=== PATIENT | female | born 1985 | race Caucasian/White ===

== ENCOUNTER 2017-01-04 23:44 | Emergency (ER) | payer OTHER ==
[~2017-01-04] VITALS: Ht 157.4 cm; Wt 149.2 kg
[~2017-01-04 23:44] MED LIST: ADIPEX-P37.5 M2 PO; ALBUTEROL0.09 MG/A2 IH; AMOXICILLIN500 MG PO; AMOXIL500 MG PO; AMOXIL875 MG PO; ASPIRIN81 M1 PO; ATIVAN1 MG PO; AUGMENTIN 875 M1 TAB PO; AUGMENTIN 875875 MG PO; BACTRIM DS 8001 TA1 PO; BACTROBAN OINT22 GM PO; CEPHALEXIN500 M1 PO; CIPROFLOXACIN500 MG PO; CLARITIN10 MG PO; COLACE100 MG PO; COUMADIN10 M1 PO; COUMADIN2 M1 PO; CYCLOBENZAPRINE10 MG PO; DELSYM30 MG/5 ML PO; DIFLUCAN150 MG PO; DIFLUCAN50 MG; ERYTHROMYCIN5 MG/G1 OP; FLAGYL500 MG PO; FLEXERIL10 MG PO; FLONASE ALLERG9.9 ML NS; FLONASE0.05 MG/AC NS; Fioricet 325 MG1 TAB PO; HYDROCODONE BIT1 T11 PO; KEFLEX500 MG PO; KENALOG0.1% TP; KLONOPIN2 MG PO; Lovenox40 MG/0.4 PO; MACROBID100 M1 PO; MONISTAT 3 COMB1 KI1; MONISTAT 7100 MG VG; MOTRIN600 MG PO; MOTRIN800 MG PO; NIFEDICAL XL30 MG PO; OCEAN NASAL SPR45 ML NAS; PENICILLIN VK500 MG PO; PENICILLIN-VK500 M1 PO; PERCOCET 325 MG1 TA2 PO; PRENATAL VITAMI1 TA9 PO; PROCARDIA20 MG PO; Peridex 473 ML473 ML PO; SEPTRA DS 800 M1 TAB PO; SUDAFED60 M1 PO; TOPAMAX100 MG PO; ULTRAM50 MG PO; VICODIN 5-3001 EACH PO; VICODIN 5/500 505 MG PO; VICODIN ES 7501 TA1; VISTARIL50 MG PO; VITAMIN D2000 IU PO; VITAMIN D400 I1; VOLTAREN75 MG PO; ZITHROMAX Z PA250 MG PO; ZITHROMAX250 MG PO; ZYRTEC10 M3 PO
[2017-01-05] MEDS ORDERED: CYCLOBENZAPRINE5 M3 PO (01:43)
[2017-01-05] MEDS ORDERED: MEDROL DOSEPAK4 MG PO (01:43)
== END 2017-01-05 02:02 | disposition home or self-care (01) ==
LOC: ED 23:44
DX: G89.29 Other chronic pain (principal); M54.6 Pain in thoracic spine; H57.8 Other specified disorders of eye and adnexa; F17.200 Nicotine dependence, unspecified, uncomplicated; Z98.890 Other specified postprocedural states; Z79.01 Long term (current) use of anticoagulants; Z88.1 Allergy status to other antibiotic agents

== ENCOUNTER 2017-03-23 00:36 | Inpatient (IN) | payer OTHER ==
[~2017-03-23] VITALS: Ht 157.4 cm; Wt 145.7 kg
--- NOTE | ~2017-03-23 | PR ---
[place], [place] PROGRESS NOTE NAME: [facility] #: [id number] UNIT #: [id number] ROOM: 507 DOCTOR: THO GUADARRAMA MD BIRTHDATE: [birth year] DOS: 03/24/2017 The patient has been admitted to the hospital with acute appendicitis and has been seen by Dr. Zaldivar and he is planning to take her for surgery today for appendectomy. 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 She is also massively obese. The patient smokes 1 pack of cigarettes daily and does not use any drugs she drinks occasionally. FAMILY HISTORY: There is history of chronic obstructive pulmonary disease and breast cancer in the family. Father at age 60, cause unknown. On examination, the patient is conscious and alert. She is complaining of pain in her abdomen with some nausea, but no vomiting. Blood pressure 115/54, pulse is 108, respirations 20, temperature 101. Chest is clear. Heart is regular. Abdomen is having marked tenderness in the right lower quadrant. Bowel sounds are present. Her CBC today is white count 11,600, hemoglobin 10.8, hematocrit 34.7. Urine cultures did not grow any bacteria and APTT is 50.5. The patient will be taken to surgery today. THO GUADARRAMA MD CM:PNTRANS [id number] THO GUADARRAMA MD 04/02/17 0726 interface
--- NOTE | ~2017-03-23 | PR ---
[place], [place] PROGRESS NOTE NAME: CHASITY [facility]ACKET[facility] #: [id number] UNIT #: [id number] ROOM: 507 DOCTOR: THO GUADARRAMA MD BIRTHDATE: [birth year] DOS: 03/25/2017 SUBJECTIVE: The patient has been admitted to hospital with acute appendicitis. She underwent appendectomy yesterday. I talked to Dr. Zaldivar and he explained that everything went our good. There was no problem, no complication. The patient has history of sagittal sinus thrombosis and she will be started on Coumadin today and she will be started on clear liquid diet. Her urine culture and sensitivity did not grow any bacteria. Her comprehensive metabolic profile is fairly good and her APTT today is 56.9. OBJECTIVE: VITAL SIGNS: Blood pressure is 134/72, pulse 78, respirations 18, temperature 98.9. CHEST: Clear. HEART: Regular. ABDOMEN: Soft. THO GUADARRAMA MD CM:PNTRANS [id number] THO GUADARRAMA MD 04/02/17 0728 interface
--- NOTE | ~2017-03-23 | O ---
[place], [place] OPERATIVE NOTE [facility]: [facility] #: [id number] UNIT #: [id number] ROOM: 507 DOCTOR: ANTONIO GUTIERREZ MD BIRTHDATE: [birth year] DOS: 03/24/2017 PREOPERATIVE DIAGNOSIS: Acute appendicitis. POSTOPERATIVE DIAGNOSIS: Acute appendicitis. PROCEDURE: Laparoscopic appendectomy. SURGEON: Antonio Gutierrez MD MANAGER EMS: MAURILIO. ANESTHESIA: General with endotracheal intubation. INDICATIONS: This is a 31-year-old lady with a history of abdominal pain and was found to have acute appendicitis. She is here for the above-mentioned procedure. The procedure and its complications were explained to the patient in detail preoperatively. Complications that were discussed included but were not limited to bleeding, infection, hematoma/seroma/abscess formation, prolonged postoperative pain, and damage to underlying vital structures. She agreed to proceed. DESCRIPTION OF PROCEDURE: After identifying the patient, the patient was brought to the operating suite and laid in the supine position. After induction of general anesthesia, a time-out procedure was called and a Franklin catheter was inserted into the urinary bladder. The parts were then painted and draped in the usual sterile fashion. An umbilical incision was made. The skin and the subcutaneous tissue were incised. The fascia was incised and 2 stay sutures were taken with the help of 0 Vicryl on either side. The peritoneum was opened and a 12-mm Luz Marina port was introduced under direct vision. A right lower quadrant and a left paramedian transverse incision was made. The right lower quadrant incision was 5 mm and the left paramedian incision was 10 mm and appropriate size ports were introduced. The patient was placed in a Trendelenburg right side up position. There were some adhesions from a previous that were taken down with the help of electrocautery. Thereafter, the appendix was found which was found to be acutely inflamed. It was held up with the help of an Endo Blake forceps and the base was then stapled across with the help of an Endo-SALONI stapler. The appendix was then placed in an EndoCatch bag and removed from the peritoneal cavity and sent for histopathological diagnosis. Hemostasis was achieved and saline was used for irrigation. After hemostasis was confirmed, the right lower quadrant and the left paramedian ports were removed and there was no bleeding seen. The umbilical port was also removed and the 2 stay sutures were tied together. Thereafter, the incisions were infiltrated with 1% plain lidocaine and approximated with the help of 4-0 Vicryl in a subcuticular running fashion. Dressings were placed. The patient tolerated the procedure well and was taken to the recovery room in stable fashion. There were no complications. Blood loss was minimal. I, Dr. Antonio Gutierrez, the attending surgeon, was present throughout the operating case. [place], [place] OPERATIVE NOTE [facility] [id number] UN[facility] #: [id number] ROOM: [facility] DOCTOR: ANTONIO GUTIERREZ MD BIRTHDATE: [birth year] Antonio Gutierrez MD CM:OPRECORD:OPERATIVE NOTE [id number] ANTONIO GUTIERREZ MD 03/24/17 1419 interface
[~2017-03-23 00:36] MED LIST changes: +CYCLOBENZAPRINE5 M3 PO; +MEDROL DOSEPAK4 MG PO
[2017-03-23 00:47] VITALS: BP 135/85
[2017-03-23 01:17] LABS: BASO # 0.1 10*3/uL (0.0-0.1); BASO % 0.5 % (0.0-1.0); EOS # 0.1 10*3/uL (0.0-0.4); EOS % 0.7 % (1.0-4.0); HEMATOCRIT 40.3 % (37.0-47.0); HEMOGLOBIN 12.9 g/dl (12.0-16.0); LYMPH # 2.9 10*3/uL (1.3-4.4); LYMPH % 24.2 % (27.0-41.0); MEAN CELL VOLUME 94.2 fl (81.0-99.0); MEAN CORPUSCULAR HGB 30.1 pg (27.0-31.0); MEAN PLATELET VOLUME 9.1 fl (9.6-12.3); MONO # 0.5 10*3/uL (0.1-1.0); MONO % 4.5 % (3.0-9.0); NEUT # 8.4 10*3/uL (2.3-7.9); NEUT % 69.7 % (47.0-73.0); PLATELET COUNT AUTOMATED 268 10*3/uL (130-400); RED BLOOD COUNT 4.28 10*6/uL (4.10-5.10)
[2017-03-23 01:28] LABS: ACT PARTIAL THROMBO TIME 31.5 SECONDS (20.8-31.5); INTERNATIONAL NORM RATIO 1.6 (2.0-3.5)
[2017-03-23 01:34] LABS: ALBUMIN 3.5 gm/dl (3.1-4.5); ALKALINE PHOSPHATASE 101 U/L (45-117); BUN 9 mg/dl (7-24); CHLORIDE 105 mmol/L (98-107); CREATININE 0.63 mg/dL (0.55-1.02); LIPASE 124 U/L (73-393); POTASSIUM 3.9 mmol/L (3.5-5.1); SGOT/AST 23 IU/L (3-35); SGPT/ALT 41 U/L (12-78); SODIUM 137 mmol/L (136-145); TOTAL PROTEIN 7.3 gm/dL (6.4-8.2)
[2017-03-23 01:36] LABS: BILIRUBIN NEGATIVE (NEGATIVE); BLOOD 3+ (NEGATIVE); CLARITY SL CLOUDY (CLEAR); COLOR YELLOW (YELLOW); GLUCOSE NEGATIVE (NEGATIVE); KETONE NEGATIVE (NEGATIVE); LEUKO ESTERASE NEGATIVE (NEGATIVE); NITRITE NEGATIVE (NEGATIVE); SPECIFIC GRAVITY <= 1.005 (1.005-1.030); UROBILINOGEN 0.2 E.U./dl (0.2-1.0)
[2017-03-23 01:44] LABS: BACTERIA 2+; EPITHELIAL CELLS 20-25
[2017-03-23 03:15] VITALS: BP 142/94
--- NOTE | 2017-03-23 03:15 | NUR ---
Time: 314 A 31 year old F admitted to under services of DR. CHAN YAN,[facility]. Pt. arrived via bed from ER. Chief complaint: ABD PAIN STARTING 03/21. RACHEL PRIEST
[2017-03-23] MEDS ORDERED: COUMADIN7.5 M1 PO (03:54)
--- NOTE | 2017-03-23 04:00 | NUR ---
DR Cristian VACA CALLED QUESTIONING DR GUTIERREZ'S PLAN FOR COAGULATION PATIENT HAS CLOTTING DISORDER. ER CONTACTED, ER NURSE UNSURE OF ORDERS FROM DR GUTIERREZ. DR GRACIA INFORMED OF ABOVE AND HE IS TO CALL DR SMART AND DR GUTIERREZ FOR INPUT.
--- NOTE | 2017-03-23 06:53 | NUR ---
REQUESTED AND RECEIVED DILAUDID IV PER PRN ORDER FOR COMPLAINTS OF ABD PAIN RATING A 10. IV FLUID BOLUS INFUSING PER ORDER. HEPARIN DRIP MAINTAINED. NPO STATUS FOR SURGERY THIS AM. CALL LIGHT WITHIN REACH. REMAINS AT BEDSIDE
--- NOTE | 2017-03-23 07:13 | NUR ---
STATES RELIEF FROM EARLIER PAIN MEDS. RESTING WITH EYES CLOSED. IV FLUIDS AND HEPARIN MAINTAINED.
[2017-03-23 08:00] VITALS: BP 135/85
--- NOTE | 2017-03-23 08:54 | NUR ---
PT GIVEN PRN DILAUDID AT THIS TIME FOR C/O MID ABDOMINAL PAIN THAT SHE RATES A 10/10. WILL COTNINUE TO MONITOR.
--- NOTE | 2017-03-23 10:00 | NUR ---
PRN DILAUDID SOMEWHAT EFFECTIVE BUT PT HAVING INCREASED PAIN AT THIS TIME. DOSE CHANGED BY DR. GUTIERREZ.
--- NOTE | 2017-03-23 10:09 | NUR ---
PT MEDICATED WITH ONE TIME DOSE OF DILAUDID 0.5 MG PER ORDER FROM [address] GUTIERREZ. Q2H DOSE CHANGED TO 1 MG. PT STATES PAIN IS GETTING WORSE AND IS NOW IN THE RLQ OF ABDOMEN.
--- NOTE | 2017-03-23 11:15 | NUR ---
PT MEDICATED WITH PRN DILAUDID AT THIS TIME FOR C/O RLQ ABDOMINAL PAIN. PT RATES PAIN 02/27. WILL REACCESS.
[2017-03-23] MEDS ORDERED: XARELTO10 MG PO (11:45)
[2017-03-23] MEDS ORDERED: METFORMIN1000 MG PO (11:46)
[2017-03-23] MEDS ORDERED: ADIPEX-P37.5 MG PO (11:46)
[2017-03-23 12:00] VITALS: BP 146/88
--- NOTE | 2017-03-23 12:15 | NUR ---
PT STATES PRN DILAUDID EFFECTIVE. PT RESTING QUIETLY.
--- NOTE | 2017-03-23 14:28 | NUR ---
Nutritional Support Services Note: Pt with Dx of appendicitis. To have surgery on 03/24/17. NPO status at this time. BMI>40. Will follow s/p surgery. Majo Montiel
--- NOTE | 2017-03-23 15:15 | NUR ---
PT MEDICATED WITH PRN DILAUDID FOR C/O RLQ ABDOMINAL PAIN. PT RATES PAIN 10/10. WILL CONTINUE TO MONITOR.
[2017-03-23 16:00] VITALS: BP 136/76
--- NOTE | 2017-03-23 17:15 | NUR ---
pt medicated with PRN DILAUDID FOR C/O RLQ ABDOMINAL PAIN. PT RATES PAIN 10/10 WILL CONTINUE TO MONITOR.
--- NOTE | 2017-03-23 18:15 | NUR ---
PRN DILAUDID EFFECTIVE.
--- NOTE | 2017-03-23 19:31 | NUR ---
PT MEDICATED WITH PRN DILAUDID FOR C/O RLQ ABDOMINAL PAIN. PT RATES PAIN 02/27. WILL REACCESS.
[2017-03-23 20:00] VITALS: BP 140/84
--- NOTE | 2017-03-23 20:00 | NUR ---
EARLIER MEDS APPEAR EFFECTIVE, SLEEPING. REMAINS ASLEEP UPON STAFF ENTERING AND EXITING ROOM. RESPIRATIONS EASY. VSS. IV FLUIDS AND HEPARIN MAINTAINED PER ORDER.
--- NOTE | 2017-03-23 22:58 | NUR ---
IMMEDIATELY UPON AWAKENING, PATIENT REQUESTED AND RECEIVED DILAUDID IV PER PRN ORDER FOR C/O ABD PAIN RATING AN 8. RESPIRATIONS EASY. LUNGS DIMINISHED. ABD SOFTLY OBESE WITH HYPOACTIVE BOWEL SOUNDS, ABD TENDERNESS NOTED. OFFERED AND EDUCATED REGARDING TEDS, DECLINED. IV FLUIDS AND HEPARIN MAINTAINED PER ORDER. CALL LIGHT WITHIN REACH. WILL MONITOR
--- NOTE | 2017-03-23 23:30 | NUR ---
STATES EARLIER DILAUDID HELPING WITH PAIN MANAGEMENT.
[2017-03-24] VITALS (11 sets, daily range): BP systolic 110–158; BP diastolic 54–84
--- NOTE | 2017-03-24 01:00 | NUR ---
REQUESTED AND RECEIVED DILAUDID IV PER PRN ORDER FOR COMPLAINTS OF ABD PAIN RATING AN 8. CALL LIGHT WITHIN REACH. WILL MONITOR FOR EFFECTIVENESS
--- NOTE | 2017-03-24 01:45 | NUR ---
EARLIER DILAUDID APPEARS EFFECTIVE. RESTING WITH EYES CLOSED. RESPIRATIONS EASY. IV FLUIDS AND HEPARIN MAINTAINED PER ORDER.
--- NOTE | 2017-03-24 02:30 | NUR ---
SLEEPING. RESPIRATIONS EASY. IV FLUIDS AND HEPARIN DRIP MAINTAINED PER ORDER.
--- NOTE | 2017-03-24 03:45 | NUR ---
REQUESTED AND RECEIVED DILAUDID IV PER PRN ORDER FOR COMPLAINTS OF ABD PAIN RATING A 10. CALL LIGHT WITHIN REACH. WILL MONITOR
--- NOTE | 2017-03-24 04:30 | NUR ---
MEDS APPEAR EFFECTIVE. SLEEPING. RESPIRATIONS EASY. IV FLUIDS AND HEPARING MAINTAINED. CALL LIGHT WITHIN REACH
--- NOTE | 2017-03-24 05:40 | NUR ---
REQUESTED AND RECEIVED DILAUDID IV PER PRN ORDER FOR COMPLAINTS OF ABD PAIN RATING A 10. IV FLUIDS MAINTAINED. CALL LIGHT WITHIN REACH. WILL MONITOR
--- NOTE | 2017-03-24 05:55 | NUR ---
DR GUTIERREZ CALLED IN TO CHECK PATIENT AND STATUS. INFORMED OF 100.1 TEMP. HR 112. PATIENT CONTINUES TO C/O PAIN DESCRIBED WORSENING. ORDERS RECEIVED TO D/C HEPARIN DRIP AND KEEP NPO FOR SURGERY 03/24.
--- NOTE | 2017-03-24 06:00 | NUR ---
PATIENT INFORMED DR GUTIERREZ TO TAKE PATIENT TO SURGERY TODAY. VOICED UNDERSTANDING
--- NOTE | 2017-03-24 06:30 | NUR ---
EARLIER MEDS APPEAR EFFECTIVE, TALKING ON PHONE AND JOKING.
[2017-03-24 08:04] LABS: BASO % 0.3 % (0.0-1.0); EOS % 0.3 % (1.0-4.0); HEMATOCRIT 34.7 % (37.0-47.0); LYMPH # 2.4 10*3/uL (1.3-4.4); LYMPH % 20.6 % (27.0-41.0); MEAN CELL VOLUME 96.4 fl (81.0-99.0); MEAN CORPUSCULAR HGB CONC 31.1 g/dl (33.0-37.0); MEAN PLATELET VOLUME 9.2 fl (9.6-12.3); MONO # 0.5 10*3/uL (0.1-1.0); MONO % 4.6 % (3.0-9.0); NEUT # 8.6 10*3/uL (2.3-7.9); NEUT % 73.9 % (47.0-73.0); PLATELET COUNT AUTOMATED 221 10*3/uL (130-400); RED CELL DISTRI WIDTH 14.2 % (0-14.5); WHITE BLOOD COUNT 11.6 10*3/uL (4.8-10.8)
[2017-03-24 08:05] LABS: HEMOGLOBIN 10.8 g/dl (12.0-16.0)
[2017-03-24 08:31] LABS: ACT PARTIAL THROMBO TIME 33.7 SECONDS (20.8-31.5); ALBUMIN 2.6 gm/dl (3.1-4.5); ALKALINE PHOSPHATASE 78 U/L (45-117); BUN 6 mg/dl (7-24); CHLORIDE 109 mmol/L (98-107); CHOLESTEROL 107 mg/dL (<200); CREATININE 0.48 mg/dL (0.55-1.02); FREE T4 1.34 ng/dl (0.76-1.46); HDL CHOLESTEROL 30 mg/dl (40-60); INTERNATIONAL NORM RATIO 1.5 (2.0-3.5); LDL CHOLESTEROL 40 mg/dL (9-159); PHOSPHOROUS 1.7 mg/dL (2.5-4.9); POTASSIUM 3.6 mmol/L (3.5-5.1); SGOT/AST 9 IU/L (3-35); SGPT/ALT 26 U/L (12-78); SODIUM 139 mmol/L (136-145); TOTAL PROTEIN 6.2 gm/dL (6.4-8.2); TRIGLYCERIDES 187 mg/dl (<150); VLDL CHOLESTEROL 37 mg/dL (6-40)
[2017-03-24 08:59] LABS: VITAMIN D, 25-HYDROXY 9.1 ng/mL (30-100)
--- NOTE | 2017-03-24 15:30 | NUR ---
PT BACK FROM OR. THE PT TOLERATED THE PROCEDURE WELL. ALL IV FLUID CONTINUED. CONT POX PUT ON PT. PT SATS IN THE LOW 90'S. PT C/O PAIN, NORCO GIVEN. WILL REASSESS PAIN LEVEL IN 30 MIN. PT DENIES NO NVD, CHEST PAIN AND SOB AT THIS TIME. NO OTHER CONCERNS.
--- NOTE | 2017-03-24 19:58 | NUR ---
C/O 10/10 ABDOMINAL PAIN. MEDICATED WITH PRN DILAUDID ORDERED. AFTER ADMINISTRATION OF DILAUDID PATIENT C/O PAIN/BURNING TO IV SITE. PATIENT SAID SHE DOES NOT FEEL LIKE SHE GOT THE DILAUDID. IV SITE HAS + BLOOD RETURN, FLUSHES EASILY. SITE DOES HAVE SLIGHT REDNESS AROUND IT. IV SITE WILL BE DISCONTINUED AND RESTARTED.
--- NOTE | 2017-03-24 20:00 | NUR ---
Hep Lock discontinued. C/O PAIN TO SITE. Site asymptomatic. Pressure applied. Sterile dressing applied. MAHENDRA BHAGAT
--- NOTE | 2017-03-24 20:00 | NUR ---
HEPARIN DOSE VERIFIED BY PHARMACY.
--- NOTE | 2017-03-24 20:39 | NUR ---
DR. MONTES NOTIFIED OF NEED TO DISCONTINUE IV SITE. PATIENT WAS GIVEN A ONE TIME DOSE OF 1 MG IV DILAUDID. CONTINUES TO C/O 10/10 ABDOMINAL PAIN. PATIENT STATES THE DILAUDID WAS INSTANTLY EFFECTIVE.
--- NOTE | 2017-03-24 22:06 | NUR ---
PATIENT WOKE UP WHILE I WAS IN HER ROOM HANGING ANTIBIOTIC AND C/O 10/10 ABDOMINAL PAIN. MEDICATED WITH NORCO ORDERED AND PER PATIENT REQUEST. PATIENT ASSISTED OUT OF BED TO BEDSIDE COMMODE.
--- NOTE | 2017-03-24 22:49 | NUR ---
PATIENT STATES NORCO IS INEFFECTIVE. C/O 10/10 ABDOMINAL PAIN. REQUESTING DILAUDID.
--- NOTE | 2017-03-24 22:58 | NUR ---
C/O 02/27 ABDOMINAL PAIN. MEDICATED WITH DILAUDID.
--- NOTE | 2017-03-24 23:23 | NUR ---
PATIENT ASLEEP. NO SIGNS OF PAIN. DILAUDID EFFECTIVE.
--- NOTE | 2017-03-24 23:52 | NUR ---
24 HR chart check completed.
[2017-03-25] VITALS: BP 129/69
--- NOTE | 2017-03-25 01:00 | NUR ---
C/O 10/10 ABDOMINAL PAIN. WORSE RLQ OF ABDOMEN. MEDICATED WITH PRN DILAUDID PER PATIENT REQUEST. NO SIGNS OF DISTRESS. CONTINOUS PULSE OX INTACT.
[2017-03-25 01:35] LABS: BASO % 0.2 % (0.0-1.0); EOS % 0.2 % (1.0-4.0); HEMATOCRIT 35.6 % (37.0-47.0); LYMPH # 2.1 10*3/uL (1.3-4.4); LYMPH % 14.8 % (27.0-41.0); MEAN CELL VOLUME 96.7 fl (81.0-99.0); MEAN CORPUSCULAR HGB 29.9 pg (27.0-31.0); MEAN CORPUSCULAR HGB CONC 30.9 g/dl (33.0-37.0); MEAN PLATELET VOLUME 9.2 fl (9.6-12.3); MONO # 0.6 10*3/uL (0.1-1.0); MONO % 4.1 % (3.0-9.0); NEUT # 11.3 10*3/uL (2.3-7.9); NEUT % 80.3 % (47.0-73.0); PLATELET COUNT AUTOMATED 212 10*3/uL (130-400); RED BLOOD COUNT 3.68 10*6/uL (4.10-5.10); RED CELL DISTRI WIDTH 14.1 % (0-14.5)
--- NOTE | 2017-03-25 01:42 | NUR ---
Patient yelling and swearing at myself and systems testing laboratory technician. Patient refusing to let lab use her hands and wrists for lab draws. Patient is a difficult stick. Patient does not want repeated sticks. AM labs drawn at the same time as PTT due to patients request. Patient tearful off and on. Patient assisted to BSC. technical specialist was able to draw the blood after patient allowed her to use her right hand. Explained to patient the need for lab draw to monitor her PTT for the heparin gtt.
--- NOTE | 2017-03-25 02:00 | NUR ---
PATIENT ASLEEP. NO SIGNS OF PAIN. DILAUDID EFFECTIVE.
--- NOTE | 2017-03-25 02:06 | NUR ---
PATIENT IS AWAKE. C/O 10/10 ABDOMINAL PAIN. MEDICATED WITH PRN NORCO ORDERED AND PER PATIENT REQUEST.
[2017-03-25 02:14] LABS: ALBUMIN 2.5 gm/dl (3.1-4.5); ALKALINE PHOSPHATASE 86 U/L (45-117); BUN 6 mg/dl (7-24); CHLORIDE 106 mmol/L (98-107); CREATININE 0.58 mg/dL (0.55-1.02); POTASSIUM 3.6 mmol/L (3.5-5.1); SGOT/AST 11 IU/L (3-35); SGPT/ALT 21 U/L (12-78); SODIUM 137 mmol/L (136-145); TOTAL PROTEIN 6.4 gm/dL (6.4-8.2)
--- NOTE | 2017-03-25 03:06 | NUR ---
PATIENT ASLEEP. NO SIGNS OF PAIN. NORCO EFFECTIVE.
--- NOTE | 2017-03-25 03:30 | NUR ---
C/O 10/10 ABDOMINAL PAIN. MEDICATED WITH DILAUDID ORDERED AND PER PATIENT REQUEST. PATIENT ON PHONE IN ROOM. NO SIGNS OF DISTRESS. CONTINUOUS PULSE OX INTACT.
[2017-03-25 04:00] VITALS: BP 134/72
--- NOTE | 2017-03-25 04:00 | NUR ---
PATIENT SLEEPING. NO SIGNS OF PAIN. DILAUDID EFFECTIVE.
--- NOTE | 2017-03-25 05:43 | NUR ---
DILAUDID GIVEN FOR 10/10 ABDOMINAL PAIN. DENIES NAUSEA. DENIES FLATUS.
--- NOTE | 2017-03-25 06:20 | NUR ---
PATIENT ASLEEP. NO SIGNS OF PAIN. DILAUDID EFFECTIVE.
--- NOTE | 2017-03-25 07:42 | NUR ---
DR GUTIERREZ IN TO SEE PT, INFORMED OF CONTINUED REQUESTS FOR PAIN MEDICATION. WILL AWAIT FURTHER ORDERS.
--- NOTE | 2017-03-25 07:57 | NUR ---
MEDICATED IV SLOWLY ORDERED PER PT REQUEST WITH DILAUDID FOR C/O ABDOMINAL PAIN. PT RATES PAIN 02/27. SEE EMAR.
[2017-03-25 08:00] VITALS: BP 128/74; BP 132/77
--- NOTE | 2017-03-25 08:03 | NUR ---
MEDICATED PO ORDERED WITH TYLENOL FOR LOW GRADE TEMPERATIRE & DULCOLAX FOR CONSTIPATION. ENCOURAGED TO GET OOB AT AID IN LUNG EXPANSION WELL PERISTALSIS. PT VOICES UNDERSTANDING. WHEN GIVEN PILLOW TO HELP SPLINT ABD INCISION, PT ADAMANTLY REFUSES STATING IT HURTS, ATTEMPED TO EXPLAIN RATIONAL, PT UNINTERESTED. SEE SHIFT ASSESSMENT.
--- NOTE | 2017-03-25 08:06 | NUR ---
DR GUADARRAMA IN TO SEE PT.
--- NOTE | 2017-03-25 08:58 | NUR ---
LATE ENTRY--PER DR GUTIERREZ, NO NEED FOR DRSNG CHANGE AT THIS TIME.
--- NOTE | 2017-03-25 09:55 | NUR ---
MEDICATED PO ORDERED PER PT REQUEST WITH PERCOCET 1 TAB FOR C/O CONTINUED ABD PAIN, PT RATES PAIN 10/10. SEE EMAR. PT STATES PREVIOUS MEDICATION ONLY EFFECTIVE FOR "ABOUT AN HOUR OR HOUR & A HALF" PT RELUCTANTLY OOB TO CHAIR, REVIEWED DEEP BREATHING TECHNIQUES. PT VOICES UNDERSTANDING. CALL LIGHT SYSTEM WITHIN REACH.
--- NOTE | 2017-03-25 10:55 | NUR ---
ATTEMPTED TO UPDATE MED REC, PHARMACY CURRENTLY CLOSED.
--- NOTE | 2017-03-25 11:59 | NUR ---
MEDICATED IV SLOWLY ORDERED PER PT REQUEST WITH DILAUDID FOR C/O CONTINUED ABDOMINAL PAIN. PT RATES PAIN 12/28. SEE EMAR.
[2017-03-25 12:00] VITALS: BP 154/82
--- NOTE | 2017-03-25 14:59 | NUR ---
MEDICATED IV SLOWLY ORDERED PER PT REQUEST FOR CONTINUED ABDOMINAL PAIN. PT RATES PAIN 10/10. SEE EMAR. PT UP TO BSC WITH ASSIST.
[2017-03-25 16:00] VITALS: BP 134/67
--- NOTE | 2017-03-25 16:02 | NUR ---
MEDICATED PO ORDERED PER PT REQUEST WITH PERCOCET 1 TAB FOR C/O CONTINUED ABD PAIN. PT RATES PAIN 12/28. SEE EMAR.
--- NOTE | 2017-03-25 17:17 | NUR ---
MEDICATED IV SLOWLY ORDERED PER PT REQUEST WITH DILAUDID FOR C/O CONTINUED ABD PAIN. PT RATES PAIN 12/28. EATING & TOLERATING MEALS.
--- NOTE | 2017-03-25 18:47 | NUR ---
WITH EACH PRN PAIN MEDICATION ADMINISTRATION, PT STATES LITTLE RELIEF AFTER AN HOUR OR SO. NO BROW FURROWING OR GUARDING OF INCISION NOTED. NO DIAPHORESIS OR OBVIOUS S/S DISTRESS NOTED. PT ATE & TOLERATED MEALS TODAY. ONCE AGAIN, ENCOURAGED PO FLUID INTAKE WELL OOB. PT VOICES UNDERSTANDING BUT IS RELUCTANT TO MOVE & REFUSES TO SPLINT INCISION.
--- NOTE | 2017-03-25 19:45 | NUR ---
C/O PAIN TO LOWER ABDOMEN OF 12/28. ID DILAUDID GIVEN AT THIS TIME PER REQUEST. WILL CONT TO MONITOR. CALL LIGHT IN REACH.
--- NOTE | 2017-03-25 19:45 | NUR ---
IN BED AWAKE ALERT AND ORIENTED X3, TALKING ON HER PHONE. NO S/S OF DISTRESS. SEE ASSESS. HEPARIN DRIP RUNNING PER ORDER. WILL CONT TO MONITOR. CALL LIGHT IN REACH.
[2017-03-25 20:00] VITALS: BP 127/77
--- NOTE | 2017-03-25 20:45 | NUR ---
PT RESTING QUIETLY AT THIS TIME. IV DILAUDID EFF. WILL CONT TO MONITOR. CALL LIGHT IN REACH.
--- NOTE | 2017-03-25 22:46 | NUR ---
C/O PAIN OF 8. PERCOCET GIVEN AT THIS TIME. WILL CONT TO MONITOR. CALL LIGHT IN REACH.
--- NOTE | 2017-03-25 23:47 | NUR ---
PATIENT MEDICATED WITH PRN DILAUDID ORDERED FOR C/O ABDOMINAL PAIN RATED A 7. PATIENT IS LEGALLY BLIND, SHE IS SITTING UP IN BED, NO SXS OF DISTRESS. PLEASANT AND COOPERATIVE WITH CARE. HEP GTT MAINTAINED ORDERED AT 26.5 ML/HR, CALL LIGHT IS IN REACH. WILL MONITOR.
[2017-03-26] VITALS: BP 129/78
--- NOTE | 2017-03-26 00:47 | NUR ---
PATIENT STATES EARLIER DILAUDID WAS EFFECTIVE IN DECREASING ABDOMINAL PAIN.
--- NOTE | 2017-03-26 02:00 | NUR ---
MEDICATED WITH PRN DILAUDID ORDERED FOR C/O ABDOMINAL PAIN RATED A 10
--- NOTE | 2017-03-26 03:18 | NUR ---
MEDICATED WITH PRN TYLENOL ORDERED FOR C/O ABDOMINAL PAIN RATED A 9.
--- NOTE | 2017-03-26 03:18 | NUR ---
EARLIER DILAUDID INEFFECTIVE PER PATIENT. SHE WAS MEDICATED WITH PO PRN TYLENOL ORDERED FOR C/O ABDOMINAL PAIN RATED A 9 AT THIS TIME. WILL FOLLOW UP.
--- NOTE | 2017-03-26 04:07 | NUR ---
MEDICATED WITH PRN DILAUDID ORDERED FOR C/O ABDOMINAL PAIN RATED AN 8
--- NOTE | 2017-03-26 05:23 | NUR ---
MEDICATEDN WITH PRN PERCOCET ORDERD FOR C/O ABDOMINAL PAIN RATED A 10. NEW BAG OF HEPARIN HUNG AT THIS TIME. MEDICATION VERIFIED WITH TWO RNS.
[2017-03-26 06:10] LABS: BASO % 0.3 % (0.0-1.0); EOS # 0.1 10*3/uL (0.0-0.4); EOS % 1.2 % (1.0-4.0); HEMATOCRIT 33.1 % (37.0-47.0); HEMOGLOBIN 10.5 g/dl (12.0-16.0); LYMPH # 1.6 10*3/uL (1.3-4.4); LYMPH % 14.1 % (27.0-41.0); MEAN CELL VOLUME 93.8 fl (81.0-99.0); MEAN CORPUSCULAR HGB 29.7 pg (27.0-31.0); MEAN CORPUSCULAR HGB CONC 31.7 g/dl (33.0-37.0); MEAN PLATELET VOLUME 9.8 fl (9.6-12.3); MONO # 0.7 10*3/uL (0.1-1.0); MONO % 6.1 % (3.0-9.0); NEUT % 77.9 % (47.0-73.0); PLATELET COUNT AUTOMATED 214 10*3/uL (130-400); RED BLOOD COUNT 3.53 10*6/uL (4.10-5.10); WHITE BLOOD COUNT 11.6 10*3/uL (4.8-10.8)
[2017-03-26 06:37] LABS: ALBUMIN 2.4 gm/dl (3.1-4.5); ALKALINE PHOSPHATASE 127 U/L (45-117); BUN 4 mg/dl (7-24); CHLORIDE 103 mmol/L (98-107); CREATININE 0.49 mg/dL (0.55-1.02); POTASSIUM 3.3 mmol/L (3.5-5.1); SGOT/AST 26 IU/L (3-35); SGPT/ALT 28 U/L (12-78); SODIUM 137 mmol/L (136-145); TOTAL PROTEIN 6.5 gm/dL (6.4-8.2)
--- NOTE | 2017-03-26 06:45 | NUR ---
MEDICATED WITH PRN DILAUDID ORDERED FOR C/O ABDOMINAL PAIN RATED A 10
[2017-03-26 07:42] LABS: INTERNATIONAL NORM RATIO 1.2 (2.0-3.5)
[2017-03-26 08:00] VITALS: BP 130/84
--- NOTE | 2017-03-26 08:00 | NUR ---
Barrel Washer in to talk to patient. Patient states lives at HOME with HER AND 6 CHILDREN. There are 14 steps in the home. Physician: DR GUADARRAMA Pharmacy: [facility] Home health services: NONE Patient's level of ADLs: MODERATE ASSIST Patient has working utilities: YES DME: NONE Follow-up physician's appointment after d/c: PREFERS TO MAKE HER OWN APPT Does patient want to access PORTAL?: Discharge plan HOME. NAGI RANDHAWA
--- NOTE | 2017-03-26 11:24 | NUR ---
Nutritional Support Services Note: Pt ordered a regular diet po. Discussed with pt healthy eating habits. Discussed proper portion sizes. Encouraged reduction in calories for weight loss. Encouraged follow up if needed. Majo Montiel
[2017-03-26 12:00] VITALS: BP 138/57
[2017-03-26 16:00] VITALS: BP 148/87
[2017-03-26 20:00] VITALS: BP 141/71
[2017-03-27] VITALS: BP 125/79
[2017-03-27 06:39] LABS: BASO % 0.3 % (0.0-1.0); EOS # 0.2 10*3/uL (0.0-0.4); EOS % 2.7 % (1.0-4.0); HEMATOCRIT 30.7 % (37.0-47.0); HEMOGLOBIN 9.7 g/dl (12.0-16.0); LYMPH # 1.4 10*3/uL (1.3-4.4); LYMPH % 20.5 % (27.0-41.0); MEAN CELL VOLUME 94.5 fl (81.0-99.0); MEAN CORPUSCULAR HGB 29.8 pg (27.0-31.0); MEAN CORPUSCULAR HGB CONC 31.6 g/dl (33.0-37.0); MEAN PLATELET VOLUME 9.6 fl (9.6-12.3); MONO # 0.4 10*3/uL (0.1-1.0); MONO % 6.5 % (3.0-9.0); NEUT # 4.6 10*3/uL (2.3-7.9); NEUT % 69.1 % (47.0-73.0); PLATELET COUNT AUTOMATED 218 10*3/uL (130-400); RED BLOOD COUNT 3.25 10*6/uL (4.10-5.10); RED CELL DISTRI WIDTH 13.8 % (0-14.5); WHITE BLOOD COUNT 6.6 10*3/uL (4.8-10.8)
[2017-03-27 07:02] LABS: ACT PARTIAL THROMBO TIME 57.9 SECONDS (20.8-31.5); INTERNATIONAL NORM RATIO 1.3 (2.0-3.5)
[2017-03-27 08:00] VITALS: BP 116/86
--- NOTE | 2017-03-27 08:43 | NUR ---
PT STILL C/O OF PAIN. PT REQUESTED DILAUDED BUT WAS EXPLAINED TO THAT IT MIGHT POSSIBLY EFFECT THE PT'S DC STATUS FOR TODAY. DR. GRACIA T/O PERCOCET 7.5MG Q6H. NO OTHER CONCERNS AT THIS TIME.
[2017-03-27 09:49] LABS: BUN 5 mg/dl (7-24); CHLORIDE 106 mmol/L (98-107); CREATININE 0.51 mg/dL (0.55-1.02); POTASSIUM 3.1 mmol/L (3.5-5.1); SODIUM 140 mmol/L (136-145)
[2017-03-27] MEDS ORDERED: Lovenox40 MG/0.4 SC (12:14)
[2017-03-27] MEDS ORDERED: PERCOCET 7.5-31 EACH PO (12:14)
--- NOTE | 2017-03-27 12:40 | NUR ---
Discharge instructions reviewed with patient/family. Patient receptive and verbalizes understanding. Follow-up care arranged. Written instructions given to patient/family. CECILIO MYERS
== END 2017-03-27 12:40 | disposition home or self-care (01) | DRG 853 ==
LOC: ED 00:36 → EDHOLD 02:38 → 5E 02:38
PROVIDERS: Internal Medicine; Nurse Practitioner Family; Surgery; ADMIT Internal Medicine
PROC: 0DTJ4ZZ Resection of Appendix, Percutaneous Endoscopic Approach (ICD-10-PCS; principal; 2017-03-24)
DX: A41.9 Sepsis, unspecified organism (principal); K35.2 Acute appendicitis with generalized peritonitis; D68.62 Lupus anticoagulant syndrome; E66.01 Morbid (severe) obesity due to excess calories; N30.01 Acute cystitis with hematuria; Z68.43 Body mass index [BMI] 50.0-59.9, adult; R73.9 Hyperglycemia, unspecified; M54.9 Dorsalgia, unspecified; F17.210 Nicotine dependence, cigarettes, uncomplicated; I10 Essential (primary) hypertension; H54.8 Legal blindness, as defined in USA; H57.8 Other specified disorders of eye and adnexa; Z87.442 Personal history of urinary calculi; Z88.8 Allergy status to other drugs, medicaments and biological substances; Z79.899 Other long term (current) drug therapy; Z79.01 Long term (current) use of anticoagulants; Z87.440 Personal history of urinary (tract) infections; Z87.01 Personal history of pneumonia (recurrent); Z83.6 Family history of other diseases of the respiratory system; Z80.3 Family history of malignant neoplasm of breast; Z86.718 Personal history of other venous thrombosis and embolism

== ENCOUNTER 2017-05-23 18:07 | Emergency (ER) | payer OTHER ==
[~2017-05-23] VITALS: Ht 157.4 cm
[~2017-05-23 18:07] MED LIST changes: +ADIPEX-P37.5 MG PO; +COUMADIN7.5 M1 PO; +Lovenox40 MG/0.4 SC; +METFORMIN1000 MG PO; +PERCOCET 7.5-31 EACH PO; +XARELTO10 MG PO
[2017-05-23 18:54] LABS: BASO # 0.1 10*3/uL (0.0-0.1); BASO % 0.6 % (0.0-1.0); EOS # 0.1 10*3/uL (0.0-0.4); EOS % 0.8 % (1.0-4.0); HEMOGLOBIN 12.2 g/dl (12.0-16.0); LYMPH # 3.2 10*3/uL (1.3-4.4); LYMPH % 27.6 % (27.0-41.0); MEAN CELL VOLUME 89.9 fl (81.0-99.0); MEAN CORPUSCULAR HGB 28.1 pg (27.0-31.0); MEAN CORPUSCULAR HGB CONC 31.3 g/dl (33.0-37.0); MEAN PLATELET VOLUME 9.2 fl (9.6-12.3); MONO # 0.5 10*3/uL (0.1-1.0); MONO % 4.6 % (3.0-9.0); NEUT # 7.7 10*3/uL (2.3-7.9); NEUT % 66.1 % (47.0-73.0); PLATELET COUNT AUTOMATED 262 10*3/uL (130-400); RED BLOOD COUNT 4.34 10*6/uL (4.10-5.10); RED CELL DISTRI WIDTH 15.2 % (0-14.5); WHITE BLOOD COUNT 11.6 10*3/uL (4.8-10.8)
[2017-05-23 19:10] LABS: ALBUMIN 3.3 gm/dl (3.1-4.5); ALKALINE PHOSPHATASE 107 U/L (45-117); BUN 10 mg/dl (7-24); CHLORIDE 103 mmol/L (98-107); CREATININE 0.61 mg/dL (0.55-1.02); POTASSIUM 4.2 mmol/L (3.5-5.1); SGOT/AST 11 IU/L (3-35); SGPT/ALT 38 U/L (12-78); SODIUM 138 mmol/L (136-145); TOTAL PROTEIN 6.9 gm/dL (6.4-8.2)
[2017-05-23 19:20] LABS: BILIRUBIN NEGATIVE (NEGATIVE); BLOOD TRACE-INTACT (NEGATIVE); CLARITY SL CLOUDY (CLEAR); COLOR YELLOW (YELLOW); GLUCOSE NEGATIVE (NEGATIVE); KETONE NEGATIVE (NEGATIVE); LEUKO ESTERASE NEGATIVE (NEGATIVE); NITRITE NEGATIVE (NEGATIVE); UROBILINOGEN 0.2 E.U./dl (0.2-1.0)
[2017-05-23 19:25] LABS: RBC 0-2 rbc/hpf (0-2)
[2017-05-23 19:26] LABS: BACTERIA 2+
[2017-05-23] MEDS ORDERED: DIFLUCAN150 MG PO (21:26)
[2017-05-23] MEDS ORDERED: OMNICEF300 MG PO (21:26)
[2017-05-23] MEDS ORDERED: NORCO 5-325 TA1 EACH PO (21:28)
== END 2017-05-23 21:29 | disposition home or self-care (01) ==
LOC: ED 18:07
PROVIDERS: Nurse Practitioner Family
DX: R10.31 Right lower quadrant pain (principal); F17.200 Nicotine dependence, unspecified, uncomplicated; E66.01 Morbid (severe) obesity due to excess calories; Z98.890 Other specified postprocedural states; Z79.01 Long term (current) use of anticoagulants; Z79.899 Other long term (current) drug therapy; Z88.1 Allergy status to other antibiotic agents; Z87.442 Personal history of urinary calculi

== ENCOUNTER 2017-08-16 16:40 | Emergency (ER) | payer OTHER ==
[~2017-08-16] VITALS: Wt 131.5 kg
[~2017-08-16 16:40] MED LIST changes: +NORCO 5-325 TA1 EACH PO; +OMNICEF300 MG PO
[2017-08-16 18:02] LABS: BILIRUBIN NEGATIVE (NEGATIVE); BLOOD NEGATIVE (NEGATIVE); CLARITY SL CLOUDY (CLEAR); COLOR YELLOW (YELLOW); GLUCOSE NEGATIVE (NEGATIVE); KETONE NEGATIVE (NEGATIVE); LEUKO ESTERASE NEGATIVE (NEGATIVE); NITRITE NEGATIVE (NEGATIVE); SPECIFIC GRAVITY 1.015 (1.005-1.030); UROBILINOGEN 0.2 E.U./dl (0.2-1.0)
[2017-08-16 18:08] LABS: BACTERIA 2+; RBC 0-2 rbc/hpf (0-2)
[2017-08-16] MEDS ORDERED: MEDROL DOSEPAK4 MG PO (18:57)
[2017-08-16] MEDS ORDERED: CYCLOBENZAPRINE10 MG PO (18:57)
== END 2017-08-16 19:03 | disposition home or self-care (01) ==
LOC: ED 16:40
PROVIDERS: Nurse Practitioner Family
DX: S39.012A Strain of muscle, fascia and tendon of lower back, initial encounter (principal); F17.200 Nicotine dependence, unspecified, uncomplicated; E66.01 Morbid (severe) obesity due to excess calories; Z79.899 Other long term (current) drug therapy; Z98.890 Other specified postprocedural states; Z88.1 Allergy status to other antibiotic agents; Z79.01 Long term (current) use of anticoagulants; Z87.442 Personal history of urinary calculi; X50.1XXA Overexertion from prolonged static or awkward postures, initial encounter; Y93.89 Activity, other specified; Y92.89 Other specified places as the place of occurrence of the external cause; Y99.9 Unspecified external cause status

== ENCOUNTER 2017-08-18 18:04 | Emergency (ER) | payer OTHER ==
[~2017-08-18] VITALS: Ht 160 cm; Wt 131.5 kg
== END 2017-08-18 18:43 | disposition home or self-care (01) ==
LOC: ED 18:04
DX: M54.5 Low back pain (principal); F17.200 Nicotine dependence, unspecified, uncomplicated; Z88.1 Allergy status to other antibiotic agents; Z79.02 Long term (current) use of antithrombotics/antiplatelets

== ENCOUNTER 2017-08-19 18:14 | Emergency (ER) | payer OTHER ==
[~2017-08-19] VITALS: Ht 160 cm; Wt 131.5 kg
[2017-08-19 19:21] LABS: BILIRUBIN NEGATIVE (NEGATIVE); BLOOD NEGATIVE (NEGATIVE); CLARITY CLEAR (CLEAR); COLOR YELLOW (YELLOW); GLUCOSE NEGATIVE (NEGATIVE); KETONE NEGATIVE (NEGATIVE); LEUKO ESTERASE NEGATIVE (NEGATIVE); NITRITE NEGATIVE (NEGATIVE); PH 6.5 (5.0-9.0); SPECIFIC GRAVITY <= 1.005 (1.005-1.030); UROBILINOGEN 0.2 E.U./dl (0.2-1.0)
[2017-08-19 19:38] LABS: BACTERIA 1+; EPITHELIAL CELLS 50-55
== END 2017-08-19 22:46 | disposition home or self-care (01) ==
LOC: ED 18:14
PROVIDERS: Physician Assistant
DX: M54.16 Radiculopathy, lumbar region (principal); F17.200 Nicotine dependence, unspecified, uncomplicated; Z98.890 Other specified postprocedural states; Z79.899 Other long term (current) drug therapy; Z79.01 Long term (current) use of anticoagulants; Z88.1 Allergy status to other antibiotic agents

== ENCOUNTER 2017-09-02 00:28 | Emergency (ER) | payer OTHER ==
[~2017-09-02] VITALS: Ht 160 cm; Wt 131.5 kg
[2017-09-02 01:11] LABS: BILIRUBIN NEGATIVE (NEGATIVE); BLOOD 1+ (NEGATIVE); CLARITY CLEAR (CLEAR); COLOR YELLOW (YELLOW); GLUCOSE NEGATIVE (NEGATIVE); KETONE TRACE (NEGATIVE); LEUKO ESTERASE NEGATIVE (NEGATIVE); NITRITE NEGATIVE (NEGATIVE); SPECIFIC GRAVITY 1.025 (1.005-1.030); UROBILINOGEN 0.2 E.U./dl (0.2-1.0)
[2017-09-02 01:17] LABS: EPITHELIAL CELLS 30-35
[2017-09-02 01:17] LABS: INTERNATIONAL NORM RATIO 1.9 (2.0-3.5)
[2017-09-02 01:18] LABS: WBC 0-2 wbc/hpf (0-5)
[2017-09-02 01:20] LABS: BUN 12 mg/dl (7-24); CHLORIDE 103 mmol/L (98-107); SODIUM 140 mmol/L (136-145)
== END 2017-09-02 02:40 | disposition home or self-care (01) ==
LOC: ED 00:28
PROVIDERS: Physician Assistant
DX: R10.31 Right lower quadrant pain (principal); E66.01 Morbid (severe) obesity due to excess calories; Z87.442 Personal history of urinary calculi; Z98.890 Other specified postprocedural states; Z88.1 Allergy status to other antibiotic agents; Z79.01 Long term (current) use of anticoagulants

== ENCOUNTER 2017-09-06 16:21 | Emergency (ER) | payer OTHER ==
[~2017-09-06] VITALS: Ht 160 cm; Wt 131.5 kg
== END 2017-09-06 17:15 | disposition home or self-care (01) ==
LOC: ED 16:21
DX: M54.5 Low back pain (principal); F17.200 Nicotine dependence, unspecified, uncomplicated; E66.01 Morbid (severe) obesity due to excess calories; Z87.442 Personal history of urinary calculi; Z88.1 Allergy status to other antibiotic agents; Z79.01 Long term (current) use of anticoagulants

== ENCOUNTER 2017-09-14 21:20 | Emergency (ER) | payer OTHER ==
[~2017-09-14] VITALS: Ht 160 cm; Wt 86.2 kg
== END 2017-09-14 22:43 | disposition home or self-care (01) ==
LOC: ED 21:20
DX: N83.201 Unspecified ovarian cyst, right side (principal); F17.200 Nicotine dependence, unspecified, uncomplicated; Z98.890 Other specified postprocedural states; Z79.899 Other long term (current) drug therapy; Z79.01 Long term (current) use of anticoagulants; Z88.1 Allergy status to other antibiotic agents

== ENCOUNTER 2017-09-16 00:22 | Emergency (ER) | payer OTHER ==
[~2017-09-16] VITALS: Ht 160 cm; Wt 131.5 kg
[2017-09-16 01:26] LABS: BASO # 0.1 10*3/uL (0.0-0.1); BASO % 0.5 % (0.0-1.0); EOS # 0.2 10*3/uL (0.0-0.4); EOS % 1.2 % (1.0-4.0); HEMATOCRIT 41.9 % (37.0-47.0); HEMOGLOBIN 12.6 g/dl (12.0-16.0); LYMPH # 3.9 10*3/uL (1.3-4.4); LYMPH % 31.5 % (27.0-41.0); MEAN CELL VOLUME 91.1 fl (81.0-99.0); MEAN CORPUSCULAR HGB 27.4 pg (27.0-31.0); MEAN CORPUSCULAR HGB CONC 30.1 g/dl (33.0-37.0); MEAN PLATELET VOLUME 9.3 fl (9.6-12.3); MONO # 0.7 10*3/uL (0.1-1.0); MONO % 5.3 % (3.0-9.0); NEUT # 7.5 10*3/uL (2.3-7.9); NEUT % 61.2 % (47.0-73.0); PLATELET COUNT AUTOMATED 329 10*3/uL (130-400); RED CELL DISTRI WIDTH 15.9 % (0-14.5); WHITE BLOOD COUNT 12.3 10*3/uL (4.8-10.8)
[2017-09-16 01:36] LABS: BILIRUBIN NEGATIVE (NEGATIVE); BLOOD 3+ (NEGATIVE); CLARITY SL CLOUDY (CLEAR); COLOR YELLOW (YELLOW); GLUCOSE NEGATIVE (NEGATIVE); KETONE NEGATIVE (NEGATIVE); LEUKO ESTERASE NEGATIVE (NEGATIVE); NITRITE NEGATIVE (NEGATIVE); UROBILINOGEN 0.2 E.U./dl (0.2-1.0)
[2017-09-16 01:43] LABS: ALBUMIN 3.4 gm/dl (3.1-4.5); ALKALINE PHOSPHATASE 106 U/L (45-117); BUN 14 mg/dl (7-24); CHLORIDE 105 mmol/L (98-107); CREATININE 0.63 mg/dL (0.55-1.02); LIPASE 152 U/L (73-393); POTASSIUM 4.3 mmol/L (3.5-5.1); SGOT/AST 11 IU/L (3-35); SGPT/ALT 23 U/L (12-78); SODIUM 139 mmol/L (136-145); TOTAL PROTEIN 7.2 gm/dL (6.4-8.2)
[2017-09-16 01:46] LABS: BACTERIA 2+; EPITHELIAL CELLS 16-20; RBC 51-100 rbc/hpf (0-2)
[2017-09-16] MEDS ORDERED: MACROBID100 M1 PO (03:06)
[2017-09-16] MEDS ORDERED: GYNE-LOTRIMIN-745 GM V (03:21)
[2017-09-17] MEDS ORDERED: NORCO 5-325 TA1 EACH PO (21:57)
== END 2017-09-16 03:34 | disposition home or self-care (01) ==
LOC: ED 00:22
PROVIDERS: Emergency Medicine
DX: N39.0 Urinary tract infection, site not specified (principal); N83.201 Unspecified ovarian cyst, right side; F17.200 Nicotine dependence, unspecified, uncomplicated; E66.01 Morbid (severe) obesity due to excess calories; Z98.890 Other specified postprocedural states; Z87.442 Personal history of urinary calculi; Z88.1 Allergy status to other antibiotic agents; Z79.01 Long term (current) use of anticoagulants

== ENCOUNTER 2017-09-17 20:09 | Emergency (ER) | payer OTHER ==
[~2017-09-17] VITALS: Ht 172.7 cm; Wt 127.0 kg
[~2017-09-17 20:09] MED LIST changes: +GYNE-LOTRIMIN-745 GM V
[2017-09-17 21:00] LABS: BASO # 0.1 10*3/uL (0.0-0.1); BASO % 0.5 % (0.0-1.0); EOS # 0.1 10*3/uL (0.0-0.4); EOS % 0.7 % (1.0-4.0); HEMATOCRIT 40.6 % (37.0-47.0); HEMOGLOBIN 12.3 g/dl (12.0-16.0); LYMPH # 3.3 10*3/uL (1.3-4.4); LYMPH % 26.8 % (27.0-41.0); MEAN CELL VOLUME 89.8 fl (81.0-99.0); MEAN CORPUSCULAR HGB 27.2 pg (27.0-31.0); MEAN CORPUSCULAR HGB CONC 30.3 g/dl (33.0-37.0); MEAN PLATELET VOLUME 8.9 fl (9.6-12.3); MONO # 0.6 10*3/uL (0.1-1.0); MONO % 4.9 % (3.0-9.0); NEUT # 8.2 10*3/uL (2.3-7.9); NEUT % 66.6 % (47.0-73.0); PLATELET COUNT AUTOMATED 287 10*3/uL (130-400); RED BLOOD COUNT 4.52 10*6/uL (4.10-5.10); RED CELL DISTRI WIDTH 15.8 % (0-14.5); WHITE BLOOD COUNT 12.3 10*3/uL (4.8-10.8)
[2017-09-17 21:12] LABS: BUN 14 mg/dl (7-24); CHLORIDE 108 mmol/L (98-107); CREATININE 0.61 mg/dL (0.55-1.02); SODIUM 140 mmol/L (136-145)
[2017-09-17 21:44] LABS: BILIRUBIN 1+ (NEGATIVE); BLOOD 3+ (NEGATIVE); CLARITY SL CLOUDY (CLEAR); COLOR YELLOW (YELLOW); GLUCOSE NEGATIVE (NEGATIVE); KETONE NEGATIVE (NEGATIVE); LEUKO ESTERASE NEGATIVE (NEGATIVE); NITRITE NEGATIVE (NEGATIVE); SPECIFIC GRAVITY >= 1.030 (1.005-1.030); UROBILINOGEN 0.2 E.U./dl (0.2-1.0)
[2017-09-17 21:54] LABS: BACTERIA TRACE; CALCIUM OXALATE CRYSTALS 1+; MUCOUS 1+
[2017-09-17] MEDS ORDERED: NORCO 5-325 TA1 EACH PO (21:57)
== END 2017-09-17 22:01 | disposition home or self-care (01) ==
LOC: ED 20:09
PROVIDERS: Emergency Medicine Emergency Medical Services
DX: R10.2 Pelvic and perineal pain (principal); R10.31 Right lower quadrant pain; F17.200 Nicotine dependence, unspecified, uncomplicated; Z88.1 Allergy status to other antibiotic agents; Z79.02 Long term (current) use of antithrombotics/antiplatelets

== ENCOUNTER → 2017-09-21 | Outpatient (CLI) | payer OTHER | END | disposition home or self-care (01) | LOC: US 09-19 13:30 | DX: N83.201 Unspecified ovarian cyst, right side (principal) ==

== ENCOUNTER 2017-09-30 08:08 | Emergency (ER) | payer OTHER ==
[~2017-09-30] VITALS: Ht 160 cm; Wt 138.8 kg
[2017-09-30 09:10] LABS: BUN 16 mg/dl (7-24); CHLORIDE 104 mmol/L (98-107); CREATININE 0.58 mg/dL (0.55-1.02); SODIUM 140 mmol/L (136-145)
[2017-09-30 09:11] LABS: BILIRUBIN NEGATIVE (NEGATIVE); BLOOD NEGATIVE (NEGATIVE); CLARITY SL CLOUDY (CLEAR); COLOR YELLOW (YELLOW); GLUCOSE NEGATIVE (NEGATIVE); KETONE NEGATIVE (NEGATIVE); LEUKO ESTERASE NEGATIVE (NEGATIVE); NITRITE NEGATIVE (NEGATIVE); PH 5.5 (5.0-9.0); SPECIFIC GRAVITY >= 1.030 (1.005-1.030); UROBILINOGEN 0.2 E.U./dl (0.2-1.0)
[2017-09-30 09:20] LABS: URINE AMPHETAMINES < 1000 (1000ng/ml); URINE BARBITURATES < 200 (200ng/ml); URINE BENZODIAZEPINES < 200 (200ng/ml); URINE CANNABINOIDS (THC) > 50 (50ng/ml); URINE COCAINE < 300 (300ng/ml); URINE METHADONE < 300 (300ng/ml); URINE OPIATES < 300 (300ng/ml); URINE PHENCYCLIDINE < 25 (25ng/ml)
[2017-09-30 09:26] LABS: BACTERIA 1+; MUCOUS 1+
== END 2017-09-30 10:11 | disposition home or self-care (01) ==
LOC: ED 08:08
PROVIDERS: Emergency Medicine
DX: G89.29 Other chronic pain (principal); M54.5 Low back pain; R10.2 Pelvic and perineal pain; F17.200 Nicotine dependence, unspecified, uncomplicated; E66.01 Morbid (severe) obesity due to excess calories; Z98.890 Other specified postprocedural states; Z88.1 Allergy status to other antibiotic agents; Z87.442 Personal history of urinary calculi; Z79.01 Long term (current) use of anticoagulants; Z79.899 Other long term (current) drug therapy

== ENCOUNTER 2017-10-05 06:12 | Emergency (ER) | payer OTHER ==
[2017-10-05 06:59] LABS: BASO # 0.1 10*3/uL (0.0-0.1); BASO % 0.4 % (0.0-1.0); EOS # 0.1 10*3/uL (0.0-0.4); EOS % 0.7 % (1.0-4.0); HEMATOCRIT 40.8 % (37.0-47.0); HEMOGLOBIN 12.5 g/dl (12.0-16.0); LYMPH # 2.3 10*3/uL (1.3-4.4); LYMPH % 16.7 % (27.0-41.0); MEAN CELL VOLUME 89.9 fl (81.0-99.0); MEAN CORPUSCULAR HGB 27.5 pg (27.0-31.0); MEAN CORPUSCULAR HGB CONC 30.6 g/dl (33.0-37.0); MEAN PLATELET VOLUME 9.5 fl (9.6-12.3); MONO # 0.6 10*3/uL (0.1-1.0); MONO % 4.6 % (3.0-9.0); NEUT # 10.7 10*3/uL (2.3-7.9); NEUT % 77.2 % (47.0-73.0); PLATELET COUNT AUTOMATED 289 10*3/uL (130-400); RED BLOOD COUNT 4.54 10*6/uL (4.10-5.10); WHITE BLOOD COUNT 13.8 10*3/uL (4.8-10.8)
[2017-10-05 07:14] LABS: ALBUMIN 3.5 gm/dl (3.1-4.5); ALKALINE PHOSPHATASE 96 U/L (45-117); BUN 9 mg/dl (7-24); CHLORIDE 107 mmol/L (98-107); CREATININE 0.62 mg/dL (0.55-1.02); LIPASE 129 U/L (73-393); SGOT/AST 12 IU/L (3-35); SGPT/ALT 19 U/L (12-78); SODIUM 139 mmol/L (136-145); TOTAL PROTEIN 7.2 gm/dL (6.4-8.2)
[2017-10-05 07:16] LABS: B-hCG (QUALITATIVE) NEGATIVE (NEGATIVE)
[2017-10-05 08:51] LABS: BILIRUBIN NEGATIVE (NEGATIVE); BLOOD NEGATIVE (NEGATIVE); CLARITY SL CLOUDY (CLEAR); COLOR YELLOW (YELLOW); GLUCOSE NEGATIVE (NEGATIVE); KETONE TRACE (NEGATIVE); LEUKO ESTERASE NEGATIVE (NEGATIVE); NITRITE NEGATIVE (NEGATIVE); PH 5.5 (5.0-9.0); SPECIFIC GRAVITY 1.025 (1.005-1.030); UROBILINOGEN 0.2 E.U./dl (0.2-1.0)
[2017-10-05 09:05] LABS: BACTERIA TRACE
[2017-10-05] MEDS ORDERED: IMODIUM A-D2 M2 PO (09:31)
[2017-10-05] MEDS ORDERED: Motrin,Rufen800 MG PO (09:55)
== END 2017-10-05 09:38 | disposition home or self-care (01) ==
LOC: ED 06:12
PROVIDERS: Emergency Medicine
DX: R10.31 Right lower quadrant pain (principal); R19.7 Diarrhea, unspecified; F17.200 Nicotine dependence, unspecified, uncomplicated; G89.29 Other chronic pain; M54.5 Low back pain; R10.2 Pelvic and perineal pain; E66.01 Morbid (severe) obesity due to excess calories; Z87.442 Personal history of urinary calculi; Z79.01 Long term (current) use of anticoagulants; Z79.899 Other long term (current) drug therapy; Z98.890 Other specified postprocedural states; Z88.1 Allergy status to other antibiotic agents; Z90.49 Acquired absence of other specified parts of digestive tract

== ENCOUNTER 2017-10-11 16:57 | Emergency (ER) | payer OTHER ==
[~2017-10-11] VITALS: Ht 160 cm; Wt 138.8 kg
[~2017-10-11 16:57] MED LIST changes: +IMODIUM A-D2 M2 PO; +Motrin,Rufen800 MG PO
[2017-10-11 17:17] LABS: BILIRUBIN NEGATIVE (NEGATIVE); BLOOD 2+ (NEGATIVE); CLARITY SL CLOUDY (CLEAR); COLOR YELLOW (YELLOW); GLUCOSE NEGATIVE (NEGATIVE); KETONE NEGATIVE (NEGATIVE); LEUKO ESTERASE NEGATIVE (NEGATIVE); NITRITE NEGATIVE (NEGATIVE); PH 5.5 (5.0-9.0); SPECIFIC GRAVITY 1.025 (1.005-1.030); UROBILINOGEN 0.2 E.U./dl (0.2-1.0)
[2017-10-11 17:27] LABS: BACTERIA 1+
[2017-10-11 17:29] LABS: RBC 16-20 rbc/hpf (0-2)
[2017-10-11 17:43] LABS: BASO # 0.1 10*3/uL (0.0-0.1); BASO % 0.7 % (0.0-1.0); EOS # 0.3 10*3/uL (0.0-0.4); EOS % 2.1 % (1.0-4.0); HEMATOCRIT 38.8 % (37.0-47.0); LYMPH # 4.3 10*3/uL (1.3-4.4); LYMPH % 35.9 % (27.0-41.0); MEAN CELL VOLUME 90.4 fl (81.0-99.0); MEAN CORPUSCULAR HGB CONC 30.9 g/dl (33.0-37.0); MEAN PLATELET VOLUME 9.5 fl (9.6-12.3); MONO # 0.6 10*3/uL (0.1-1.0); MONO % 4.9 % (3.0-9.0); NEUT # 6.8 10*3/uL (2.3-7.9); NEUT % 56.2 % (47.0-73.0); PLATELET COUNT AUTOMATED 287 10*3/uL (130-400); RED BLOOD COUNT 4.29 10*6/uL (4.10-5.10); WHITE BLOOD COUNT 12.1 10*3/uL (4.8-10.8)
[2017-10-11 18:02] LABS: ALBUMIN 3.6 gm/dl (3.1-4.5); ALKALINE PHOSPHATASE 93 U/L (45-117); BUN 12 mg/dl (7-24); CHLORIDE 106 mmol/L (98-107); CREATININE 0.59 mg/dL (0.55-1.02); SGOT/AST 12 IU/L (3-35); SGPT/ALT 18 U/L (12-78); SODIUM 138 mmol/L (136-145); TOTAL PROTEIN 7.2 gm/dL (6.4-8.2)
[2017-10-11 18:53] LABS: INTERNATIONAL NORM RATIO 1.3 (2.0-3.5)
[2017-10-11] MEDS ORDERED: ULTRAM50 MG PO (21:49)
== END 2017-10-11 21:47 | disposition home or self-care (01) ==
LOC: ED 16:57
PROVIDERS: Emergency Medicine; Student in an Organized Health Care Education/Training Program
DX: R10.31 Right lower quadrant pain (principal); G89.29 Other chronic pain; F10.10 Alcohol abuse, uncomplicated; Z88.1 Allergy status to other antibiotic agents; Z79.899 Other long term (current) drug therapy

== ENCOUNTER 2017-12-28 20:29 | Emergency (ER) | payer OTHER ==
[~2017-12-28 20:29] MED LIST changes: +ZOFRAN ODT4 MG SL
[2017-12-28 21:08] LABS: BILIRUBIN NEGATIVE (NEGATIVE); BLOOD TRACE-INTACT (NEGATIVE); CLARITY SL CLOUDY (CLEAR); COLOR YELLOW (YELLOW); GLUCOSE NEGATIVE (NEGATIVE); KETONE NEGATIVE (NEGATIVE); LEUKO ESTERASE NEGATIVE (NEGATIVE); NITRITE NEGATIVE (NEGATIVE); UROBILINOGEN 0.2 E.U./dl (0.2-1.0)
[2017-12-28 21:11] LABS: BACTERIA 2+; EPITHELIAL CELLS TNTC; RBC 0-2 rbc/hpf (0-2)
[2017-12-28 22:27] LABS: BASO # 0.1 10*3/uL (0.0-0.1); BASO % 0.6 % (0.0-1.0); EOS # 0.1 10*3/uL (0.0-0.4); HEMATOCRIT 36.4 % (37.0-47.0); HEMOGLOBIN 11.1 g/dl (12.0-16.0); LYMPH # 2.8 10*3/uL (1.3-4.4); MEAN CELL VOLUME 87.5 fl (81.0-99.0); MEAN CORPUSCULAR HGB 26.7 pg (27.0-31.0); MEAN CORPUSCULAR HGB CONC 30.5 g/dl (33.0-37.0); MONO # 0.5 10*3/uL (0.1-1.0); MONO % 5.1 % (3.0-9.0); NEUT # 6.9 10*3/uL (2.3-7.9); NEUT % 65.7 % (47.0-73.0); PLATELET COUNT AUTOMATED 297 10*3/uL (130-400); RED BLOOD COUNT 4.16 10*6/uL (4.10-5.10); RED CELL DISTRI WIDTH 16.1 % (0-14.5); WHITE BLOOD COUNT 10.5 10*3/uL (4.8-10.8)
[2017-12-28 22:40] LABS: ALBUMIN 3.3 gm/dl (3.1-4.5); ALKALINE PHOSPHATASE 100 U/L (45-117); BUN 10 mg/dl (7-24); CHLORIDE 106 mmol/L (98-107); POTASSIUM 4.2 mmol/L (3.5-5.1); SGOT/AST 11 IU/L (3-35); SGPT/ALT 26 U/L (12-78); SODIUM 140 mmol/L (136-145); TOTAL PROTEIN 6.9 gm/dL (6.4-8.2)
[2017-12-29] MEDS ORDERED: TYLENOL325 M1 PO (00:55)
[2017-12-29] MEDS ORDERED: FLOMAX0.4 MG PO (00:55)
[2018-01-05] MEDS ORDERED: MEDROL DOSEPAK4 MG PO (22:21)
[2018-01-05] MEDS ORDERED: Orphenadrine C100 MG PO (23:34)
== END 2017-12-29 00:56 | disposition home or self-care (01) ==
LOC: ED 20:29
PROVIDERS: Nurse Practitioner
DX: N20.0 Calculus of kidney (principal); D68.9 Coagulation defect, unspecified; F17.200 Nicotine dependence, unspecified, uncomplicated; Z71.6 Tobacco abuse counseling; Z98.890 Other specified postprocedural states; Z79.899 Other long term (current) drug therapy; Z79.01 Long term (current) use of anticoagulants; Z88.1 Allergy status to other antibiotic agents

== ENCOUNTER 2018-01-19 22:15 | Emergency (ER) | payer OTHER ==
[~2018-01-19] VITALS: Ht 157.4 cm; Wt 132.4 kg
[~2018-01-19 22:15] MED LIST changes: +FLOMAX0.4 MG PO; +Orphenadrine C100 MG PO; +TYLENOL325 M1 PO
[2018-01-19 23:57] LABS: BILIRUBIN NEGATIVE (NEGATIVE); BLOOD 3+ (NEGATIVE); CLARITY CLOUDY (CLEAR); COLOR YELLOW (YELLOW); GLUCOSE NEGATIVE (NEGATIVE); KETONE NEGATIVE (NEGATIVE); LEUKO ESTERASE NEGATIVE (NEGATIVE); NITRITE NEGATIVE (NEGATIVE); PH 5.5 (5.0-9.0); SPECIFIC GRAVITY 1.025 (1.005-1.030); UROBILINOGEN 0.2 E.U./dl (0.2-1.0)
[2018-01-20 00:17] LABS: BACTERIA 1+; RBC TNTC rbc/hpf (0-2)
[2018-01-21] MEDS ORDERED: CLARITIN10 MG PO (06:09)
[2018-01-21] MEDS ORDERED: ZITHROMAX250 MG PO (06:09)
[2018-01-24] MEDS ORDERED: ZYRTEC10 MG PO (20:48)
[2018-01-24] MEDS ORDERED: TESSALON PERLE100 MG PO (20:48)
== END 2018-01-20 01:14 | disposition home or self-care (01) ==
LOC: ED 22:15
PROVIDERS: Nurse Practitioner Family
DX: N94.6 Dysmenorrhea, unspecified (principal); F17.200 Nicotine dependence, unspecified, uncomplicated; Z98.890 Other specified postprocedural states; Z79.899 Other long term (current) drug therapy; Z88.1 Allergy status to other antibiotic agents; Z88.6 Allergy status to analgesic agent; Z79.01 Long term (current) use of anticoagulants

== ENCOUNTER 2018-02-06 17:05 | Emergency (ER) | payer OTHER ==
[~2018-02-06] VITALS: Ht 157.4 cm; Wt 137.0 kg
[~2018-02-06 17:05] MED LIST changes: +TESSALON PERLE100 MG PO; +ZYRTEC10 MG PO
[2018-02-06 17:53] LABS: BILIRUBIN NEGATIVE (NEGATIVE); BLOOD NEGATIVE (NEGATIVE); CLARITY CLEAR (CLEAR); COLOR YELLOW (YELLOW); GLUCOSE NEGATIVE (NEGATIVE); KETONE NEGATIVE (NEGATIVE); LEUKO ESTERASE NEGATIVE (NEGATIVE); NITRITE NEGATIVE (NEGATIVE); SPECIFIC GRAVITY 1.025 (1.005-1.030)
[2018-02-06 18:06] LABS: MUCOUS TRACE; RBC 0-2 rbc/hpf (0-2)
[2018-02-06] MEDS ORDERED: LIDEX 0.05% CRE15 GM T (18:32)
[2018-02-06] MEDS ORDERED: BENADRYL25 M2 PO (18:32)
== END 2018-02-06 18:45 | disposition home or self-care (01) ==
LOC: ED 17:05
PROVIDERS: Nurse Practitioner Family
DX: S70.362A Insect bite (nonvenomous), left thigh, initial encounter (principal); G89.29 Other chronic pain; M54.5 Low back pain; R10.9 Unspecified abdominal pain; F17.200 Nicotine dependence, unspecified, uncomplicated; Z88.1 Allergy status to other antibiotic agents; Z88.6 Allergy status to analgesic agent; Z79.02 Long term (current) use of antithrombotics/antiplatelets

== ENCOUNTER 2018-02-13 18:46 | Emergency (ER) | payer OTHER ==
[~2018-02-13] VITALS: Wt 136.1 kg
[~2018-02-13 18:46] MED LIST changes: +BENADRYL25 M2 PO; +LIDEX 0.05% CRE15 GM T
[2018-02-13 20:21] LABS: BILIRUBIN NEGATIVE (NEGATIVE); BLOOD NEGATIVE (NEGATIVE); CLARITY CLEAR (CLEAR); COLOR YELLOW (YELLOW); GLUCOSE NEGATIVE (NEGATIVE); KETONE NEGATIVE (NEGATIVE); LEUKO ESTERASE NEGATIVE (NEGATIVE); NITRITE NEGATIVE (NEGATIVE); UROBILINOGEN 0.2 E.U./dl (0.2-1.0)
[2018-02-13 20:35] LABS: BACTERIA 2+
== END 2018-02-13 21:45 ==
LOC: ED 18:46
PROVIDERS: Emergency Medicine Emergency Medical Services
DX: G89.29 Other chronic pain (principal); R10.9 Unspecified abdominal pain; R82.71 Bacteriuria; Z88.1 Allergy status to other antibiotic agents; F17.200 Nicotine dependence, unspecified, uncomplicated; Z88.6 Allergy status to analgesic agent; Z87.442 Personal history of urinary calculi; Z79.01 Long term (current) use of anticoagulants; Z98.890 Other specified postprocedural states

== ENCOUNTER 2018-05-08 19:38 | Emergency (ER) | payer OTHER ==
[~2018-05-08] VITALS: Ht 157.4 cm; Wt 134.3 kg
[2018-05-08 20:40] LABS: BASO # 0.1 10*3/uL (0.0-0.1); BASO % 0.5 % (0.0-1.0); EOS # 0.1 10*3/uL (0.0-0.4); EOS % 1.1 % (1.0-4.0); HEMOGLOBIN 11.2 g/dl (12.0-16.0); LYMPH # 3.8 10*3/uL (1.3-4.4); LYMPH % 32.9 % (27.0-41.0); MEAN CELL VOLUME 84.5 fl (81.0-99.0); MEAN CORPUSCULAR HGB 25.6 pg (27.0-31.0); MEAN CORPUSCULAR HGB CONC 30.3 g/dl (33.0-37.0); MEAN PLATELET VOLUME 9.6 fl (9.6-12.3); MONO # 0.6 10*3/uL (0.1-1.0); MONO % 5.5 % (3.0-9.0); NEUT # 6.8 10*3/uL (2.3-7.9); NEUT % 59.7 % (47.0-73.0); PLATELET COUNT AUTOMATED 295 10*3/uL (130-400); RED BLOOD COUNT 4.38 10*6/uL (4.10-5.10); RED CELL DISTRI WIDTH 17.5 % (0-14.5); WHITE BLOOD COUNT 11.5 10*3/uL (4.8-10.8)
[2018-05-08 20:40] LABS: BILIRUBIN NEGATIVE (NEGATIVE); BLOOD 3+ (NEGATIVE); CLARITY SL CLOUDY (CLEAR); COLOR YELLOW (YELLOW); GLUCOSE NEGATIVE (NEGATIVE); KETONE NEGATIVE (NEGATIVE); LEUKO ESTERASE NEGATIVE (NEGATIVE); NITRITE NEGATIVE (NEGATIVE); PH 5.5 (5.0-9.0); SPECIFIC GRAVITY >= 1.030 (1.005-1.030); UROBILINOGEN 0.2 E.U./dl (0.2-1.0)
[2018-05-08 20:46] LABS: BACTERIA 1+; MUCOUS 1+; RBC TNTC rbc/hpf (0-2); WBC 0-2 wbc/hpf (0-5)
[2018-05-08 20:56] LABS: ALBUMIN 3.5 gm/dl (3.1-4.5); ALKALINE PHOSPHATASE 91 U/L (45-117); BUN 14 mg/dl (7-24); CHLORIDE 110 mmol/L (98-107); CREATININE 0.63 mg/dL (0.55-1.02); LIPASE 128 U/L (73-393); POTASSIUM 3.6 mmol/L (3.5-5.1); SGOT/AST 9 IU/L (3-35); SGPT/ALT 22 U/L (12-78); SODIUM 141 mmol/L (136-145); TOTAL PROTEIN 7.4 gm/dL (6.4-8.2)
[2018-05-08] MEDS ORDERED: ROBAXIN500 M1 PO (21:41)
== END 2018-05-08 21:45 | disposition home or self-care (01) ==
LOC: ED 19:38
PROVIDERS: Physician Assistant
DX: G89.29 Other chronic pain (principal); M54.5 Low back pain; N94.89 Other specified conditions associated with female genital organs and menstrual cycle; F17.200 Nicotine dependence, unspecified, uncomplicated; Z88.1 Allergy status to other antibiotic agents; Z88.6 Allergy status to analgesic agent; Z79.01 Long term (current) use of anticoagulants; Z79.899 Other long term (current) drug therapy

== ENCOUNTER 2018-06-08 06:28 | Emergency (ER) | payer OTHER ==
[~2018-06-08] VITALS: Ht 157.4 cm; Wt 132.9 kg
[~2018-06-08 06:28] MED LIST changes: +ROBAXIN500 M1 PO
[2018-06-08] MEDS ORDERED: NEURONTIN100 MG PO (06:34)
[2018-06-08 06:54] LABS: BILIRUBIN NEGATIVE (NEGATIVE); BLOOD NEGATIVE (NEGATIVE); CLARITY SL CLOUDY (CLEAR); COLOR YELLOW (YELLOW); GLUCOSE NEGATIVE (NEGATIVE); KETONE TRACE (NEGATIVE); LEUKO ESTERASE NEGATIVE (NEGATIVE); NITRITE NEGATIVE (NEGATIVE); SPECIFIC GRAVITY 1.025 (1.005-1.030); UROBILINOGEN 0.2 E.U./dl (0.2-1.0)
[2018-06-08 07:24] LABS: BASO % 0.3 % (0.0-1.0); EOS # 0.1 10*3/uL (0.0-0.4); EOS % 0.5 % (1.0-4.0); HEMATOCRIT 38.2 % (37.0-47.0); HEMOGLOBIN 11.2 g/dl (12.0-16.0); LYMPH # 3.1 10*3/uL (1.3-4.4); LYMPH % 26.9 % (27.0-41.0); MEAN CELL VOLUME 83.6 fl (81.0-99.0); MEAN CORPUSCULAR HGB 24.5 pg (27.0-31.0); MEAN CORPUSCULAR HGB CONC 29.3 g/dl (33.0-37.0); MEAN PLATELET VOLUME 9.7 fl (9.6-12.3); MONO # 0.6 10*3/uL (0.1-1.0); MONO % 5.2 % (3.0-9.0); NEUT # 7.6 10*3/uL (2.3-7.9); NEUT % 66.8 % (47.0-73.0); PLATELET COUNT AUTOMATED 364 10*3/uL (130-400); RED BLOOD COUNT 4.57 10*6/uL (4.10-5.10); RED CELL DISTRI WIDTH 17.8 % (0-14.5); WHITE BLOOD COUNT 11.5 10*3/uL (4.8-10.8)
[2018-06-08 07:32] LABS: BACTERIA 2+
[2018-06-08 07:47] LABS: ALBUMIN 3.5 gm/dl (3.1-4.5); ALKALINE PHOSPHATASE 102 U/L (45-117); BUN 10 mg/dl (7-24); CHLORIDE 107 mmol/L (98-107); CREATININE 0.69 mg/dL (0.55-1.02); POTASSIUM 4.4 mmol/L (3.5-5.1); SGOT/AST 19 IU/L (3-35); SGPT/ALT 22 U/L (12-78); SODIUM 139 mmol/L (136-145); TOTAL PROTEIN 7.2 gm/dL (6.4-8.2)
[2018-06-08] MEDS ORDERED: NORCO 10-325 T1 EACH PO (10:02)
[2018-07-05] MEDS ORDERED: CHLORZOXAZONE500 M2 PO (19:21)
[2018-07-24] MEDS ORDERED: CYCLOBENZAPRINE10 MG PO (11:14)
[2018-12-11] MEDS ORDERED: DULOXETINE HCL30 MG PO (08:10)
[2018-12-11] MEDS ORDERED: BACLOFEN20 M1 PO (08:11)
[2018-12-11] MEDS ORDERED: HYDROCODONE-AC1 EAC1 PO (08:11)
== END 2018-06-08 10:05 | disposition home or self-care (01) ==
LOC: ED 06:28
PROVIDERS: Emergency Medicine
DX: N23 Unspecified renal colic (principal); E66.01 Morbid (severe) obesity due to excess calories; F17.200 Nicotine dependence, unspecified, uncomplicated; Z88.1 Allergy status to other antibiotic agents; Z88.6 Allergy status to analgesic agent; Z79.01 Long term (current) use of anticoagulants

== ENCOUNTER 2018-06-10 13:07 | Emergency (ER) | payer OTHER ==
[~2018-06-10 13:07] MED LIST changes: +NEURONTIN100 MG PO; +NORCO 10-325 T1 EACH PO
[2018-06-10 14:28] LABS: BILIRUBIN NEGATIVE (NEGATIVE); BLOOD NEGATIVE (NEGATIVE); CLARITY CLOUDY (CLEAR); COLOR YELLOW (YELLOW); GLUCOSE NEGATIVE (NEGATIVE); KETONE TRACE (NEGATIVE); LEUKO ESTERASE NEGATIVE (NEGATIVE); NITRITE NEGATIVE (NEGATIVE); SPECIFIC GRAVITY >= 1.030 (1.005-1.030); UROBILINOGEN 0.2 E.U./dl (0.2-1.0)
[2018-06-10 14:34] LABS: EPITHELIAL CELLS TNTC
[2018-06-10 14:37] LABS: BACTERIA 4+; CALCIUM OXALATE CRYSTALS 3+
[2018-07-05] MEDS ORDERED: CHLORZOXAZONE500 M2 PO (19:21)
[2018-07-24] MEDS ORDERED: CYCLOBENZAPRINE10 MG PO (11:14)
== END 2018-06-10 15:05 | disposition home or self-care (01) ==
LOC: ED 13:07
PROVIDERS: Physician Assistant
DX: N20.0 Calculus of kidney (principal); F17.200 Nicotine dependence, unspecified, uncomplicated; Z88.1 Allergy status to other antibiotic agents; Z88.6 Allergy status to analgesic agent; Z79.01 Long term (current) use of anticoagulants; Z87.442 Personal history of urinary calculi

== ENCOUNTER 2018-06-13 10:27 | Emergency (ER) | payer OTHER ==
[2018-06-13 11:33] LABS: BASO # 0.1 10*3/uL (0.0-0.1); BASO % 0.5 % (0.0-1.0); EOS % 0.4 % (1.0-4.0); HEMATOCRIT 37.9 % (37.0-47.0); HEMOGLOBIN 11.1 g/dl (12.0-16.0); LYMPH # 2.7 10*3/uL (1.3-4.4); LYMPH % 27.1 % (27.0-41.0); MEAN CELL VOLUME 83.8 fl (81.0-99.0); MEAN CORPUSCULAR HGB 24.6 pg (27.0-31.0); MEAN CORPUSCULAR HGB CONC 29.3 g/dl (33.0-37.0); MONO # 0.5 10*3/uL (0.1-1.0); MONO % 5.1 % (3.0-9.0); NEUT # 6.7 10*3/uL (2.3-7.9); NEUT % 66.6 % (47.0-73.0); PLATELET COUNT AUTOMATED 279 10*3/uL (130-400); RED BLOOD COUNT 4.52 10*6/uL (4.10-5.10); RED CELL DISTRI WIDTH 17.8 % (0-14.5)
[2018-06-13 11:52] LABS: ALBUMIN 3.5 gm/dl (3.1-4.5); ALKALINE PHOSPHATASE 95 U/L (45-117); BUN 9 mg/dl (7-24); CHLORIDE 110 mmol/L (98-107); CREATININE 0.66 mg/dL (0.55-1.02); POTASSIUM 4.2 mmol/L (3.5-5.1); SGOT/AST 7 IU/L (3-35); SGPT/ALT 16 U/L (12-78); SODIUM 142 mmol/L (136-145); TOTAL PROTEIN 7.1 gm/dL (6.4-8.2)
[2018-06-13 12:33] LABS: BILIRUBIN NEGATIVE (NEGATIVE); BLOOD NEGATIVE (NEGATIVE); CLARITY CLEAR (CLEAR); COLOR YELLOW (YELLOW); GLUCOSE NEGATIVE (NEGATIVE); KETONE NEGATIVE (NEGATIVE); LEUKO ESTERASE NEGATIVE (NEGATIVE); NITRITE NEGATIVE (NEGATIVE); SPECIFIC GRAVITY <= 1.005 (1.005-1.030); UROBILINOGEN 0.2 E.U./dl (0.2-1.0)
[2018-06-13] MEDS ORDERED: VOLTAREN100 GM T (12:39)
[2018-06-13] MEDS ORDERED: ARTHRITIS PAI42.5 GM T (12:39)
[2018-06-13 12:52] LABS: BACTERIA 1+; EPITHELIAL CELLS 25-30; RBC 0-2 rbc/hpf (0-2)
[2018-07-05] MEDS ORDERED: CHLORZOXAZONE500 M2 PO (19:21)
[2018-07-24] MEDS ORDERED: CYCLOBENZAPRINE10 MG PO (11:14)
== END 2018-06-13 12:42 | disposition home or self-care (01) ==
LOC: ED 10:27
PROVIDERS: Emergency Medicine
DX: G89.29 Other chronic pain (principal); M54.5 Low back pain; R10.9 Unspecified abdominal pain; E66.01 Morbid (severe) obesity due to excess calories; F17.200 Nicotine dependence, unspecified, uncomplicated; Z88.1 Allergy status to other antibiotic agents; Z88.6 Allergy status to analgesic agent; Z79.01 Long term (current) use of anticoagulants; Z79.899 Other long term (current) drug therapy; Z87.442 Personal history of urinary calculi

== ENCOUNTER 2018-06-15 18:16 | Emergency (ER) | payer OTHER ==
[~2018-06-15] VITALS: Ht 157.4 cm; Wt 132.9 kg
[~2018-06-15 18:16] MED LIST changes: +ARTHRITIS PAI42.5 GM T; +VOLTAREN100 GM T
[2018-06-15 18:57] LABS: BILIRUBIN NEGATIVE (NEGATIVE); BLOOD NEGATIVE (NEGATIVE); CLARITY SL CLOUDY (CLEAR); COLOR YELLOW (YELLOW); GLUCOSE NEGATIVE (NEGATIVE); KETONE NEGATIVE (NEGATIVE); LEUKO ESTERASE NEGATIVE (NEGATIVE); NITRITE NEGATIVE (NEGATIVE); SPECIFIC GRAVITY >= 1.030 (1.005-1.030); UROBILINOGEN 0.2 E.U./dl (0.2-1.0)
[2018-06-15 19:06] LABS: BACTERIA 2+; EPITHELIAL CELLS TNTC; MUCOUS 1+
[2018-06-15] MEDS ORDERED: LIDODERM1 EACH T (19:29)
[2018-07-05] MEDS ORDERED: CHLORZOXAZONE500 M2 PO (19:21)
[2018-07-24] MEDS ORDERED: CYCLOBENZAPRINE10 MG PO (11:14)
[2018-12-11] MEDS ORDERED: DULOXETINE HCL30 MG PO (08:10)
[2018-12-11] MEDS ORDERED: HYDROCODONE-AC1 EAC1 PO (08:11)
[2018-12-11] MEDS ORDERED: BACLOFEN20 M1 PO (08:11)
== END 2018-06-15 19:50 | disposition home or self-care (01) ==
LOC: ED 18:16
PROVIDERS: Physician Assistant
DX: G89.29 Other chronic pain (principal); M54.5 Low back pain; F17.200 Nicotine dependence, unspecified, uncomplicated; Z88.6 Allergy status to analgesic agent; Z88.1 Allergy status to other antibiotic agents; Z79.01 Long term (current) use of anticoagulants

== ENCOUNTER 2018-06-17 20:15 | Emergency (ER) | payer OTHER ==
[~2018-06-17] VITALS: Ht 157.4 cm; Wt 132.9 kg
[~2018-06-17 20:15] MED LIST changes: +LIDODERM1 EACH T
[2018-06-17] MEDS ORDERED: WARFARIN SODIU7.5 MG PO (20:20)
[2018-06-17] MEDS ORDERED: GABAPENTIN100 M2 PO (20:21)
[2018-06-17 20:44] LABS: BASO # 0.1 10*3/uL (0.0-0.1); BASO % 0.6 % (0.0-1.0); EOS # 0.2 10*3/uL (0.0-0.4); EOS % 1.5 % (1.0-4.0); HEMATOCRIT 35.8 % (37.0-47.0); HEMOGLOBIN 10.8 g/dl (12.0-16.0); LYMPH # 4.1 10*3/uL (1.3-4.4); LYMPH % 32.3 % (27.0-41.0); MEAN CELL VOLUME 83.1 fl (81.0-99.0); MEAN CORPUSCULAR HGB 25.1 pg (27.0-31.0); MEAN CORPUSCULAR HGB CONC 30.2 g/dl (33.0-37.0); MEAN PLATELET VOLUME 9.1 fl (9.6-12.3); MONO # 0.6 10*3/uL (0.1-1.0); MONO % 4.6 % (3.0-9.0); NEUT # 7.7 10*3/uL (2.3-7.9); NEUT % 60.6 % (47.0-73.0); PLATELET COUNT AUTOMATED 278 10*3/uL (130-400); RED BLOOD COUNT 4.31 10*6/uL (4.10-5.10); RED CELL DISTRI WIDTH 18.1 % (0-14.5); WHITE BLOOD COUNT 12.7 10*3/uL (4.8-10.8)
[2018-06-17 21:05] LABS: ALBUMIN 3.2 gm/dl (3.1-4.5); ALKALINE PHOSPHATASE 86 U/L (45-117); BUN 9 mg/dl (7-24); CHLORIDE 110 mmol/L (98-107); LIPASE 144 U/L (73-393); POTASSIUM 4.2 mmol/L (3.5-5.1); SGOT/AST 8 IU/L (3-35); SGPT/ALT 17 U/L (12-78); SODIUM 141 mmol/L (136-145); TOTAL PROTEIN 6.8 gm/dL (6.4-8.2)
[2018-06-17 21:36] LABS: BILIRUBIN NEGATIVE (NEGATIVE); BLOOD NEGATIVE (NEGATIVE); CLARITY CLEAR (CLEAR); COLOR YELLOW (YELLOW); GLUCOSE NEGATIVE (NEGATIVE); KETONE NEGATIVE (NEGATIVE); LEUKO ESTERASE NEGATIVE (NEGATIVE); NITRITE NEGATIVE (NEGATIVE); UROBILINOGEN 0.2 E.U./dl (0.2-1.0)
[2018-06-17 21:47] LABS: BACTERIA 3+; RBC 0-2 rbc/hpf (0-2)
[2018-06-17] MEDS ORDERED: TYLENOL325 M1 PO (22:12)
[2018-07-05] MEDS ORDERED: CHLORZOXAZONE500 M2 PO (19:21)
[2018-07-24] MEDS ORDERED: CYCLOBENZAPRINE10 MG PO (11:14)
== END 2018-06-17 22:21 | disposition home or self-care (01) ==
LOC: ED 20:15
PROVIDERS: Student in an Organized Health Care Education/Training Program
DX: R10.31 Right lower quadrant pain (principal); F17.200 Nicotine dependence, unspecified, uncomplicated; Z88.1 Allergy status to other antibiotic agents; Z88.6 Allergy status to analgesic agent

== ENCOUNTER 2018-06-28 00:07 | Emergency (ER) | payer OTHER ==
[~2018-06-28] VITALS: Ht 157.4 cm; Wt 132.9 kg
[~2018-06-28 00:07] MED LIST changes: +GABAPENTIN100 M2 PO; +WARFARIN SODIU7.5 MG PO
[2018-06-28 00:38] LABS: BILIRUBIN NEGATIVE (NEGATIVE); BLOOD 3+ (NEGATIVE); CLARITY CLOUDY (CLEAR); COLOR YELLOW (YELLOW); GLUCOSE NEGATIVE (NEGATIVE); KETONE TRACE (NEGATIVE); LEUKO ESTERASE NEGATIVE (NEGATIVE); NITRITE NEGATIVE (NEGATIVE); PH 5.5 (5.0-9.0); SPECIFIC GRAVITY >= 1.030 (1.005-1.030); UROBILINOGEN 0.2 E.U./dl (0.2-1.0)
[2018-06-28 00:57] LABS: RBC TNTC rbc/hpf (0-2)
[2018-07-05] MEDS ORDERED: CHLORZOXAZONE500 M2 PO (19:21)
[2018-07-24] MEDS ORDERED: CYCLOBENZAPRINE10 MG PO (11:14)
== END 2018-06-28 01:24 | disposition home or self-care (01) ==
LOC: ED 00:07
PROVIDERS: Emergency Medicine Emergency Medical Services
DX: N94.6 Dysmenorrhea, unspecified (principal); N20.0 Calculus of kidney; G89.29 Other chronic pain; M54.9 Dorsalgia, unspecified; E66.01 Morbid (severe) obesity due to excess calories; F17.200 Nicotine dependence, unspecified, uncomplicated; Z88.1 Allergy status to other antibiotic agents; Z88.6 Allergy status to analgesic agent; Z79.899 Other long term (current) drug therapy; Z79.01 Long term (current) use of anticoagulants; Z87.442 Personal history of urinary calculi

== ENCOUNTER 2018-06-29 14:48 | Emergency (ER) | payer OTHER ==
[~2018-06-29] VITALS: Ht 157.4 cm; Wt 132.9 kg
[2018-06-29 15:48] LABS: INTERNATIONAL NORM RATIO 1.6 (2.0-3.5)
[2018-07-05] MEDS ORDERED: CHLORZOXAZONE500 M2 PO (19:21)
[2018-07-24] MEDS ORDERED: CYCLOBENZAPRINE10 MG PO (11:14)
[2018-12-11] MEDS ORDERED: DULOXETINE HCL30 MG PO (08:10)
[2018-12-11] MEDS ORDERED: HYDROCODONE-AC1 EAC1 PO (08:11)
[2018-12-11] MEDS ORDERED: BACLOFEN20 M1 PO (08:11)
== END 2018-06-29 18:19 | disposition home or self-care (01) ==
LOC: ED 14:48
PROVIDERS: Emergency Medicine
DX: R10.9 Unspecified abdominal pain (principal); E66.01 Morbid (severe) obesity due to excess calories; F17.200 Nicotine dependence, unspecified, uncomplicated; Z87.442 Personal history of urinary calculi; Z88.1 Allergy status to other antibiotic agents; Z88.6 Allergy status to analgesic agent; Z79.01 Long term (current) use of anticoagulants

== ENCOUNTER 2018-07-03 00:24 | Emergency (ER) | payer OTHER ==
[~2018-07-03] VITALS: Ht 157.4 cm; Wt 131.5 kg
[2018-07-05] MEDS ORDERED: CHLORZOXAZONE500 M2 PO (19:21)
[2018-07-24] MEDS ORDERED: CYCLOBENZAPRINE10 MG PO (11:14)
[2018-12-11] MEDS ORDERED: DULOXETINE HCL30 MG PO (08:10)
[2018-12-11] MEDS ORDERED: HYDROCODONE-AC1 EAC1 PO (08:11)
[2018-12-11] MEDS ORDERED: BACLOFEN20 M1 PO (08:11)
== END 2018-07-03 01:15 | disposition home or self-care (01) ==
LOC: ED 00:24
DX: G89.29 Other chronic pain (principal); M54.5 Low back pain; E66.01 Morbid (severe) obesity due to excess calories; F17.200 Nicotine dependence, unspecified, uncomplicated; Z76.5 Malingerer [conscious simulation]; Z88.1 Allergy status to other antibiotic agents; Z88.6 Allergy status to analgesic agent; Z79.899 Other long term (current) drug therapy; Z79.01 Long term (current) use of anticoagulants; Z87.442 Personal history of urinary calculi

== ENCOUNTER 2018-07-09 21:59 | Emergency (ER) | payer OTHER ==
[~2018-07-09] VITALS: Ht 157.4 cm; Wt 136.1 kg
[~2018-07-09 21:59] MED LIST changes: +CHLORZOXAZONE500 M2 PO
[2018-07-10] MEDS ORDERED: Orphenadrine C100 MG PO (00:54)
[2018-07-24] MEDS ORDERED: CYCLOBENZAPRINE10 MG PO (11:14)
[2018-12-11] MEDS ORDERED: DULOXETINE HCL30 MG PO (08:10)
[2018-12-11] MEDS ORDERED: HYDROCODONE-AC1 EAC1 PO (08:11)
[2018-12-11] MEDS ORDERED: BACLOFEN20 M1 PO (08:11)
== END 2018-07-10 01:38 | disposition home or self-care (01) ==
LOC: ED 21:59
DX: S93.402A Sprain of unspecified ligament of left ankle, initial encounter (principal); S96.912A Strain of unspecified muscle and tendon at ankle and foot level, left foot, initial encounter; G89.29 Other chronic pain; M54.5 Low back pain; E66.01 Morbid (severe) obesity due to excess calories; F17.200 Nicotine dependence, unspecified, uncomplicated; Z88.1 Allergy status to other antibiotic agents; Z88.6 Allergy status to analgesic agent; Z79.899 Other long term (current) drug therapy; Z79.01 Long term (current) use of anticoagulants; Z87.442 Personal history of urinary calculi; X50.1XXA Overexertion from prolonged static or awkward postures, initial encounter; Y93.89 Activity, other specified; Y92.89 Other specified places as the place of occurrence of the external cause; Y99.8 Other external cause status

== ENCOUNTER 2018-07-27 20:41 | Emergency (ER) | payer OTHER ==
[~2018-07-27] VITALS: Ht 157.4 cm; Wt 134.7 kg
[2018-12-11] MEDS ORDERED: DULOXETINE HCL30 MG PO (08:10)
[2018-12-11] MEDS ORDERED: BACLOFEN20 M1 PO (08:11)
[2018-12-11] MEDS ORDERED: HYDROCODONE-AC1 EAC1 PO (08:11)
== END 2018-07-27 21:41 | disposition home or self-care (01) ==
LOC: ED 20:41
DX: M54.9 Dorsalgia, unspecified (principal); G89.29 Other chronic pain; F17.200 Nicotine dependence, unspecified, uncomplicated; Z79.899 Other long term (current) drug therapy; Z79.01 Long term (current) use of anticoagulants; Z88.1 Allergy status to other antibiotic agents; Z88.6 Allergy status to analgesic agent

== ENCOUNTER → 2018-08-29 | Outpatient (CLI) | payer OTHER ==
[~2018-08-29] MED LIST changes: +BACLOFEN20 M1 PO; +DULOXETINE HCL30 MG PO; +HYDROCODONE-AC1 EAC1 PO
== END | disposition home or self-care (01) ==
LOC: MRI 10:00
DX: M48.061 Spinal stenosis, lumbar region without neurogenic claudication (principal); M54.2 Cervicalgia

== ENCOUNTER 2018-08-30 17:01 | Emergency (ER) | payer OTHER ==
[~2018-08-30] VITALS: Ht 157.4 cm; Wt 137.4 kg
[~2018-08-30 17:01] MED LIST changes: -BACLOFEN20 M1 PO; -DULOXETINE HCL30 MG PO; -HYDROCODONE-AC1 EAC1 PO
[2018-08-30 17:29] LABS: BILIRUBIN NEGATIVE (NEGATIVE); BLOOD NEGATIVE (NEGATIVE); CLARITY CLEAR (CLEAR); COLOR YELLOW (YELLOW); GLUCOSE NEGATIVE (NEGATIVE); KETONE NEGATIVE (NEGATIVE); LEUKO ESTERASE NEGATIVE (NEGATIVE); NITRITE NEGATIVE (NEGATIVE); PH 6.5 (5.0-9.0); UROBILINOGEN 0.2 E.U./dl (0.2-1.0)
[2018-08-30 17:37] LABS: BACTERIA 1+; EPITHELIAL CELLS 16-20; MUCOUS 2+
[2018-08-30 18:36] LABS: BASO # 0.1 10*3/uL (0.0-0.1); BASO % 0.5 % (0.0-1.0); EOS % 0.3 % (1.0-4.0); HEMATOCRIT 36.4 % (37.0-47.0); HEMOGLOBIN 10.7 g/dl (12.0-16.0); LYMPH # 3.1 10*3/uL (1.3-4.4); LYMPH % 27.8 % (27.0-41.0); MEAN CELL VOLUME 84.8 fl (81.0-99.0); MEAN CORPUSCULAR HGB 24.9 pg (27.0-31.0); MEAN CORPUSCULAR HGB CONC 29.4 g/dl (33.0-37.0); MEAN PLATELET VOLUME 9.2 fl (9.6-12.3); MONO # 0.5 10*3/uL (0.1-1.0); MONO % 4.7 % (3.0-9.0); NEUT # 7.3 10*3/uL (2.3-7.9); NEUT % 66.3 % (47.0-73.0); PLATELET COUNT AUTOMATED 251 10*3/uL (130-400); RED BLOOD COUNT 4.29 10*6/uL (4.10-5.10); RED CELL DISTRI WIDTH 18.4 % (0-14.5)
[2018-08-30 18:50] LABS: BUN 13 mg/dl (7-24); CHLORIDE 109 mmol/L (98-107); CREATININE 0.53 mg/dL (0.55-1.02); POTASSIUM 4.1 mmol/L (3.5-5.1); SODIUM 140 mmol/L (136-145)
[2018-12-11] MEDS ORDERED: DULOXETINE HCL30 MG PO (08:10)
[2018-12-11] MEDS ORDERED: BACLOFEN20 M1 PO (08:11)
[2018-12-11] MEDS ORDERED: HYDROCODONE-AC1 EAC1 PO (08:11)
== END 2018-08-30 21:25 | disposition home or self-care (01) ==
LOC: ED 17:01
PROVIDERS: Nurse Practitioner
DX: N20.0 Calculus of kidney (principal); F17.200 Nicotine dependence, unspecified, uncomplicated; Z79.01 Long term (current) use of anticoagulants; Z88.1 Allergy status to other antibiotic agents; Z88.6 Allergy status to analgesic agent; Z87.442 Personal history of urinary calculi; Z86.2 Personal history of diseases of the blood and blood-forming organs and certain disorders involving the immune mechanism

== ENCOUNTER 2018-09-15 20:25 | Emergency (ER) | payer OTHER ==
[~2018-09-15] VITALS: Ht 157.4 cm; Wt 139.7 kg
[2018-09-15] MEDS ORDERED: HYDROCODONE-AC1 EAC1 PO (20:56)
[2018-12-11] MEDS ORDERED: DULOXETINE HCL30 MG PO (08:10)
[2018-12-11] MEDS ORDERED: BACLOFEN20 M1 PO (08:11)
[2018-12-11] MEDS ORDERED: HYDROCODONE-AC1 EAC1 PO (08:11)
== END 2018-09-15 21:06 | disposition home or self-care (01) ==
LOC: ED 20:25
DX: G89.29 Other chronic pain (principal); R10.31 Right lower quadrant pain; R10.2 Pelvic and perineal pain; F17.200 Nicotine dependence, unspecified, uncomplicated; Z79.01 Long term (current) use of anticoagulants; Z88.1 Allergy status to other antibiotic agents; Z88.6 Allergy status to analgesic agent; Z98.890 Other specified postprocedural states

== ENCOUNTER → 2018-10-24 | Outpatient (CLI) | payer OTHER ==
[~2018-10-24] MED LIST changes: +BACLOFEN20 M1 PO; +DULOXETINE HCL30 MG PO; +HYDROCODONE-AC1 EAC1 PO
[2018-10-25 00:18] LABS: BASO # 0.1 10*3/uL (0.0-0.1); BASO % 0.6 % (0.0-1.0); EOS # 0.1 10*3/uL (0.0-0.4); EOS % 0.7 % (1.0-4.0); HEMATOCRIT 40.3 % (37.0-47.0); HEMOGLOBIN 12.1 g/dl (12.0-16.0); LYMPH # 3.8 10*3/uL (1.3-4.4); LYMPH % 27.7 % (27.0-41.0); MEAN CORPUSCULAR HGB 25.5 pg (27.0-31.0); MEAN PLATELET VOLUME 9.3 fl (9.6-12.3); MONO # 0.7 10*3/uL (0.1-1.0); NEUT # 9.1 10*3/uL (2.3-7.9); NEUT % 65.6 % (47.0-73.0); PLATELET COUNT AUTOMATED 334 10*3/uL (130-400); RED BLOOD COUNT 4.74 10*6/uL (4.10-5.10); RED CELL DISTRI WIDTH 19.6 % (0-14.5); WHITE BLOOD COUNT 13.8 10*3/uL (4.8-10.8)
[2018-10-25 00:29] LABS: ACT PARTIAL THROMBO TIME 32.8 SECONDS (20.0-32.1); INTERNATIONAL NORM RATIO 1.8 (2.0-3.5)
[2018-10-25 00:48] LABS: ALBUMIN 3.6 gm/dl (3.1-4.5); ALKALINE PHOSPHATASE 83 U/L (45-117); BUN 15 mg/dl (7-24); CHLORIDE 111 mmol/L (98-107); CREATININE 0.75 mg/dL (0.55-1.02); POTASSIUM 4.4 mmol/L (3.5-5.1); SGOT/AST 6 IU/L (3-35); SODIUM 142 mmol/L (136-145); TOTAL PROTEIN 7.6 gm/dL (6.4-8.2)
[2018-10-25 00:55] LABS: SGPT/ALT 17 U/L (12-78)
== END | disposition home or self-care (01) ==
LOC: LAB 23:46
PROVIDERS: Internal Medicine Hematology & Oncology
DX: G08 Intracranial and intraspinal phlebitis and thrombophlebitis (principal)

== ENCOUNTER → 2018-10-25 | Outpatient (CLI) | payer OTHER ==
[2018-10-25 17:32] LABS: FERRITIN 7.3 ng/mL (10.0-291.0)
[2018-10-27 15:06] LABS: DILUTE PROTHROMBIN TIME 90.9 sec (0.0-55.0); DPT CONFIRM RATIO 1.17 Ratio (0.00-1.40); PTT-LA 56.4 sec (0.0-51.9); THROMBIN TIME 16.4 sec (0.0-23.0)
[2018-10-28 09:08] LABS: LUPUS DRVVT 84.7 sec (0.0-47.0); PTT-LA MIX 43.4 sec (0.0-48.9)
[2018-10-29 13:05] LABS: HEXAGONAL PHASE PHOSPHOLIPID 4 sec (0-11); LUPUS REFLEX INTERPRETATION Comment: (.)
[2018-10-29 16:46] LABS: HEXRFX RFX
== END | disposition home or self-care (01) ==
LOC: LAB 12:22
PROVIDERS: Internal Medicine Hematology & Oncology
DX: G08 Intracranial and intraspinal phlebitis and thrombophlebitis (principal)

== ENCOUNTER → 2018-12-02 | Outpatient (CLI) | payer OTHER | END | disposition home or self-care (01) | LOC: US 15:42 | DX: R10.2 Pelvic and perineal pain (principal) ==

== ENCOUNTER 2018-12-06 07:08 | Emergency (ER) | payer OTHER ==
[~2018-12-06] VITALS: Ht 157.4 cm; Wt 139.3 kg
[~2018-12-06 07:08] MED LIST changes: -BACLOFEN20 M1 PO; -DULOXETINE HCL30 MG PO
[2018-12-06 08:03] LABS: BILIRUBIN NEGATIVE (NEGATIVE); BLOOD TRACE-LYSED (NEGATIVE); CLARITY SL CLOUDY (CLEAR); COLOR YELLOW (YELLOW); GLUCOSE NEGATIVE (NEGATIVE); KETONE NEGATIVE (NEGATIVE); LEUKO ESTERASE NEGATIVE (NEGATIVE); NITRITE NEGATIVE (NEGATIVE); SPECIFIC GRAVITY >= 1.030 (1.005-1.030); UROBILINOGEN 0.2 E.U./dl (0.2-1.0)
[2018-12-06 08:09] LABS: BASO # 0.1 10*3/uL (0.0-0.1); BASO % 0.5 % (0.0-1.0); EOS # 0.1 10*3/uL (0.0-0.4); EOS % 0.8 % (1.0-4.0); HEMATOCRIT 36.1 % (37.0-47.0); HEMOGLOBIN 10.7 g/dl (12.0-16.0); LYMPH # 3.3 10*3/uL (1.3-4.4); LYMPH % 26.8 % (27.0-41.0); MEAN CELL VOLUME 86.2 fl (81.0-99.0); MEAN CORPUSCULAR HGB 25.5 pg (27.0-31.0); MEAN CORPUSCULAR HGB CONC 29.6 g/dl (33.0-37.0); MEAN PLATELET VOLUME 8.9 fl (9.6-12.3); MONO # 0.6 10*3/uL (0.1-1.0); MONO % 4.8 % (3.0-9.0); NEUT # 8.1 10*3/uL (2.3-7.9); NEUT % 66.7 % (47.0-73.0); PLATELET COUNT AUTOMATED 262 10*3/uL (130-400); RED BLOOD COUNT 4.19 10*6/uL (4.10-5.10); RED CELL DISTRI WIDTH 18.4 % (0-14.5); WHITE BLOOD COUNT 12.1 10*3/uL (4.8-10.8)
[2018-12-06 08:15] LABS: BACTERIA 2+; EPITHELIAL CELLS 21-30; MUCOUS 2+; RBC 0-2 rbc/hpf (0-2)
[2018-12-06 08:23] LABS: ALBUMIN 3.2 gm/dl (3.1-4.5); ALKALINE PHOSPHATASE 86 U/L (45-117); BUN 12 mg/dl (7-24); CHLORIDE 109 mmol/L (98-107); LIPASE 86 U/L (73-393); POTASSIUM 3.9 mmol/L (3.5-5.1); SGOT/AST 11 IU/L (3-35); SGPT/ALT 21 U/L (12-78); SODIUM 140 mmol/L (136-145); TOTAL PROTEIN 6.8 gm/dL (6.4-8.2)
[2018-12-06 08:35] LABS: BETA-HCG, QUANT < 1.0 mIU/mL (1-3)
[2018-12-11] MEDS ORDERED: DULOXETINE HCL30 MG PO (08:10)
[2018-12-11] MEDS ORDERED: HYDROCODONE-AC1 EAC1 PO (08:11)
[2018-12-11] MEDS ORDERED: BACLOFEN20 M1 PO (08:11)
== END 2018-12-06 12:07 | disposition home or self-care (01) ==
LOC: ED 07:08
PROVIDERS: Emergency Medicine
DX: R10.32 Left lower quadrant pain (principal); E66.01 Morbid (severe) obesity due to excess calories; F17.200 Nicotine dependence, unspecified, uncomplicated; Z88.1 Allergy status to other antibiotic agents; Z88.8 Allergy status to other drugs, medicaments and biological substances; Z79.01 Long term (current) use of anticoagulants; G89.29 Other chronic pain; Z87.442 Personal history of urinary calculi

== ENCOUNTER 2018-12-17 08:34 | Emergency (ER) | payer OTHER ==
[~2018-12-17] VITALS: Ht 157.4 cm; Wt 140.6 kg
[~2018-12-17 08:34] MED LIST changes: +BACLOFEN20 M1 PO; +DULOXETINE HCL30 MG PO
[2018-12-17 09:04] LABS: BILIRUBIN NEGATIVE (NEGATIVE); BLOOD TRACE-INTACT (NEGATIVE); COLOR YELLOW (YELLOW); GLUCOSE NEGATIVE (NEGATIVE); KETONE NEGATIVE (NEGATIVE); LEUKO ESTERASE NEGATIVE (NEGATIVE); NITRITE NEGATIVE (NEGATIVE); SPECIFIC GRAVITY >= 1.030 (1.005-1.030); UROBILINOGEN 0.2 E.U./dl (0.2-1.0)
[2018-12-17 09:06] LABS: BASO # 0.1 10*3/uL (0.0-0.1); BASO % 0.5 % (0.0-1.0); EOS # 0.1 10*3/uL (0.0-0.4); HEMATOCRIT 40.9 % (37.0-47.0); HEMOGLOBIN 12.2 g/dl (12.0-16.0); LYMPH # 2.6 10*3/uL (1.3-4.4); LYMPH % 22.6 % (27.0-41.0); MEAN CELL VOLUME 88.7 fl (81.0-99.0); MEAN CORPUSCULAR HGB 26.5 pg (27.0-31.0); MEAN CORPUSCULAR HGB CONC 29.8 g/dl (33.0-37.0); MEAN PLATELET VOLUME 9.2 fl (9.6-12.3); MONO # 0.6 10*3/uL (0.1-1.0); MONO % 5.2 % (3.0-9.0); NEUT # 8.1 10*3/uL (2.3-7.9); NEUT % 70.2 % (47.0-73.0); PLATELET COUNT AUTOMATED 280 10*3/uL (130-400); RED BLOOD COUNT 4.61 10*6/uL (4.10-5.10); RED CELL DISTRI WIDTH 20.5 % (0-14.5); WHITE BLOOD COUNT 11.5 10*3/uL (4.8-10.8)
[2018-12-17 09:18] LABS: INTERNATIONAL NORM RATIO 1.2 (2.0-3.5)
[2018-12-17 09:19] LABS: BACTERIA 2+; CLARITY SL CLOUDY (CLEAR)
[2018-12-17 09:25] LABS: ALBUMIN 3.6 gm/dl (3.1-4.5); ALKALINE PHOSPHATASE 90 U/L (45-117); BUN 13 mg/dl (7-24); CHLORIDE 108 mmol/L (98-107); CREATININE 0.69 mg/dL (0.55-1.02); SGOT/AST 9 IU/L (3-35); SGPT/ALT 21 U/L (12-78); SODIUM 137 mmol/L (136-145); TOTAL PROTEIN 7.4 gm/dL (6.4-8.2)
[2018-12-17] MEDS ORDERED: NORCO 10-325 T1 EACH PO (10:07)
== END 2018-12-17 10:29 | disposition home or self-care (01) ==
LOC: ED 08:34
PROVIDERS: Emergency Medicine
DX: N94.6 Dysmenorrhea, unspecified (principal); E66.01 Morbid (severe) obesity due to excess calories; F17.200 Nicotine dependence, unspecified, uncomplicated; Z88.1 Allergy status to other antibiotic agents; Z88.6 Allergy status to analgesic agent; Z79.899 Other long term (current) drug therapy; Z79.01 Long term (current) use of anticoagulants

== ENCOUNTER 2018-12-25 17:33 | Emergency (ER) | payer OTHER ==
[~2018-12-25] VITALS: Ht 157.4 cm; Wt 139.7 kg
== END 2018-12-25 18:10 | disposition home or self-care (01) ==
LOC: ED 17:33
DX: R10.30 Lower abdominal pain, unspecified (principal); H54.7 Unspecified visual loss; F17.200 Nicotine dependence, unspecified, uncomplicated; Z88.1 Allergy status to other antibiotic agents; Z88.8 Allergy status to other drugs, medicaments and biological substances; Z79.01 Long term (current) use of anticoagulants; Z79.899 Other long term (current) drug therapy

== ENCOUNTER 2019-01-13 21:00 | Emergency (ER) | payer OTHER ==
[~2019-01-13] VITALS: Ht 157.4 cm; Wt 139.7 kg
== END 2019-01-13 21:17 | disposition home or self-care (01) ==
LOC: ED 21:00
DX: N94.6 Dysmenorrhea, unspecified (principal); F17.200 Nicotine dependence, unspecified, uncomplicated; Z88.1 Allergy status to other antibiotic agents; Z88.8 Allergy status to other drugs, medicaments and biological substances; Z79.01 Long term (current) use of anticoagulants; Z79.899 Other long term (current) drug therapy

== ENCOUNTER 2019-04-01 16:52 | Emergency (ER) | payer OTHER ==
[~2019-04-01] VITALS: Ht 160 cm; Wt 139.7 kg
== END 2019-04-01 18:26 | disposition left against medical advice (07) ==
LOC: ED 16:52
DX: R10.9 Unspecified abdominal pain (principal); M54.5 Low back pain; I10 Essential (primary) hypertension; F17.200 Nicotine dependence, unspecified, uncomplicated; Z88.1 Allergy status to other antibiotic agents; Z88.6 Allergy status to analgesic agent; Z79.899 Other long term (current) drug therapy; Z79.01 Long term (current) use of anticoagulants; Z87.442 Personal history of urinary calculi

== ENCOUNTER 2019-05-02 21:35 | Emergency (ER) | payer OTHER ==
[~2019-05-02] VITALS: Ht 167.6 cm; Wt 136.1 kg
[2019-05-02] MEDS ORDERED: AUGMENTIN 875875 MG PO (22:42)
[2019-05-02] MEDS ORDERED: DIFLUCAN150 MG PO (22:43)
[2019-05-02] MEDS ORDERED: TAMIFLU45 MG PO (23:22)
[2019-05-02] MEDS ORDERED: ZOFRAN4 MG PO (23:22)
== END 2019-05-02 23:35 | disposition home or self-care (01) ==
LOC: ED 21:35
DX: J10.1 Influenza due to other identified influenza virus with other respiratory manifestations (principal); H66.91 Otitis media, unspecified, right ear; I10 Essential (primary) hypertension; F17.200 Nicotine dependence, unspecified, uncomplicated; Z88.1 Allergy status to other antibiotic agents; Z88.6 Allergy status to analgesic agent; Z79.01 Long term (current) use of anticoagulants; Z79.899 Other long term (current) drug therapy

== ENCOUNTER 2019-05-07 19:12 | Emergency (ER) | payer OTHER ==
[~2019-05-07] VITALS: Ht 157.4 cm; Wt 140.6 kg
[~2019-05-07 19:12] MED LIST changes: +TAMIFLU45 MG PO; +ZOFRAN4 MG PO
[2019-05-07 20:43] LABS: ALBUMIN 3.3 gm/dl (3.1-4.5); ALKALINE PHOSPHATASE 73 U/L (45-117); BUN 10 mg/dl (7-24); CHLORIDE 110 mmol/L (98-107); CREATININE 0.64 mg/dL (0.55-1.02); LIPASE 153 U/L (73-393); POTASSIUM 3.7 mmol/L (3.5-5.1); SGOT/AST 27 IU/L (3-35); SGPT/ALT 26 U/L (12-78); SODIUM 141 mmol/L (136-145)
[2019-05-07 20:49] LABS: BILIRUBIN NEGATIVE (NEGATIVE); BLOOD TRACE-INTACT (NEGATIVE); CLARITY SL CLOUDY (CLEAR); COLOR YELLOW (YELLOW); GLUCOSE NEGATIVE (NEGATIVE); KETONE NEGATIVE (NEGATIVE); LEUKO ESTERASE NEGATIVE (NEGATIVE); NITRITE NEGATIVE (NEGATIVE); SPECIFIC GRAVITY 1.025 (1.005-1.030); UROBILINOGEN 0.2 E.U./dl (0.2-1.0)
[2019-05-07 20:58] LABS: BACTERIA TRACE; EPITHELIAL CELLS TNTC; RBC 0-2 rbc/hpf (0-2); WBC 0-2 wbc/hpf (0-5)
[2019-05-07 21:23] LABS: BASO % 0.3 % (0.0-1.0); EOS % 0.5 % (1.0-4.0); HEMATOCRIT 42.6 % (37.0-47.0); HEMOGLOBIN 13.4 g/dl (12.0-16.0); LYMPH # 2.3 10*3/uL (1.3-4.4); LYMPH % 38.1 % (27.0-41.0); MEAN CELL VOLUME 94.2 fl (81.0-99.0); MEAN CORPUSCULAR HGB 29.6 pg (27.0-31.0); MEAN CORPUSCULAR HGB CONC 31.5 g/dl (33.0-37.0); MONO # 0.3 10*3/uL (0.1-1.0); MONO % 4.3 % (3.0-9.0); NEUT # 3.4 10*3/uL (2.3-7.9); NEUT % 56.5 % (47.0-73.0); PLATELET COUNT AUTOMATED 195 10*3/uL (130-400); RED BLOOD COUNT 4.52 10*6/uL (4.10-5.10); RED CELL DISTRI WIDTH 14.2 % (0-14.5); WHITE BLOOD COUNT 6.1 10*3/uL (4.8-10.8)
== END 2019-05-07 21:41 | disposition home or self-care (01) ==
LOC: ED 19:12
PROVIDERS: Physician Assistant
DX: R10.11 Right upper quadrant pain (principal); I10 Essential (primary) hypertension; R50.9 Fever, unspecified; Z90.49 Acquired absence of other specified parts of digestive tract; Z88.1 Allergy status to other antibiotic agents; Z88.8 Allergy status to other drugs, medicaments and biological substances; Z79.2 Long term (current) use of antibiotics; Z79.899 Other long term (current) drug therapy; Z79.01 Long term (current) use of anticoagulants

== ENCOUNTER 2019-06-07 14:20 | Emergency (ER) | payer OTHER ==
[~2019-06-07] VITALS: Ht 157.4 cm; Wt 140.6 kg
[2019-06-07] MEDS ORDERED: ELIQUIS5 M1 PO (14:41)
[2019-06-07 16:26] LABS: BILIRUBIN NEGATIVE (NEGATIVE); BLOOD NEGATIVE (NEGATIVE); CLARITY CLEAR (CLEAR); COLOR YELLOW (YELLOW); GLUCOSE NEGATIVE (NEGATIVE); KETONE NEGATIVE (NEGATIVE); LEUKO ESTERASE NEGATIVE (NEGATIVE); NITRITE NEGATIVE (NEGATIVE); UROBILINOGEN 0.2 E.U./dl (0.2-1.0)
[2019-06-07 16:36] LABS: BACTERIA 2+; EPITHELIAL CELLS 16-20
[2019-06-07 16:37] LABS: MUCOUS 1+
[2019-06-07] MEDS ORDERED: NORCO 10-325 T1 EACH PO (18:41)
== END 2019-06-07 18:58 | disposition home or self-care (01) ==
LOC: ED 14:20
PROVIDERS: Emergency Medicine
DX: G43.909 Migraine, unspecified, not intractable, without status migrainosus (principal); R10.32 Left lower quadrant pain; N94.89 Other specified conditions associated with female genital organs and menstrual cycle; G89.29 Other chronic pain; F17.200 Nicotine dependence, unspecified, uncomplicated; Z88.1 Allergy status to other antibiotic agents; Z88.8 Allergy status to other drugs, medicaments and biological substances; Z79.899 Other long term (current) drug therapy; Z79.2 Long term (current) use of antibiotics; Z87.442 Personal history of urinary calculi

== ENCOUNTER 2019-06-11 09:34 | Emergency (ER) | payer OTHER ==
[~2019-06-11] VITALS: Ht 157.4 cm; Wt 140.6 kg
[~2019-06-11 09:34] MED LIST changes: +ELIQUIS5 M1 PO
[2019-06-11 10:06] LABS: BASO # 0.1 10*3/uL (0.0-0.1); BASO % 0.6 % (0.0-1.0); EOS # 0.1 10*3/uL (0.0-0.4); EOS % 0.8 % (1.0-4.0); HEMATOCRIT 42.9 % (37.0-47.0); HEMOGLOBIN 13.2 g/dl (12.0-16.0); LYMPH # 2.2 10*3/uL (1.3-4.4); LYMPH % 25.4 % (27.0-41.0); MEAN CELL VOLUME 95.8 fl (81.0-99.0); MEAN CORPUSCULAR HGB 29.5 pg (27.0-31.0); MEAN CORPUSCULAR HGB CONC 30.8 g/dl (33.0-37.0); MEAN PLATELET VOLUME 9.2 fl (9.6-12.3); MONO # 0.4 10*3/uL (0.1-1.0); MONO % 4.9 % (3.0-9.0); NEUT % 68.1 % (47.0-73.0); PLATELET COUNT AUTOMATED 229 10*3/uL (130-400); RED BLOOD COUNT 4.48 10*6/uL (4.10-5.10); RED CELL DISTRI WIDTH 15.1 % (0-14.5); WHITE BLOOD COUNT 8.8 10*3/uL (4.8-10.8)
[2019-06-11 10:22] LABS: ALBUMIN 3.4 gm/dl (3.1-4.5); ALKALINE PHOSPHATASE 77 U/L (45-117); BUN 9 mg/dl (7-24); CHLORIDE 106 mmol/L (98-107); CREATININE 0.74 mg/dL (0.55-1.02); LIPASE 122 U/L (73-393); POTASSIUM 4.1 mmol/L (3.5-5.1); SGOT/AST 5 IU/L (3-35); SGPT/ALT 18 U/L (12-78); SODIUM 138 mmol/L (136-145); TOTAL PROTEIN 7.1 gm/dL (6.4-8.2)
[2019-06-11 11:06] LABS: BILIRUBIN NEGATIVE (NEGATIVE); BLOOD TRACE-INTACT (NEGATIVE); CLARITY SL CLOUDY (CLEAR); COLOR YELLOW (YELLOW); GLUCOSE NEGATIVE (NEGATIVE); KETONE TRACE (NEGATIVE); LEUKO ESTERASE NEGATIVE (NEGATIVE); NITRITE NEGATIVE (NEGATIVE); SPECIFIC GRAVITY 1.015 (1.005-1.030); UROBILINOGEN 0.2 E.U./dl (0.2-1.0)
[2019-06-11 11:08] LABS: URINE AMPHETAMINES < 1000 (1000ng/ml); URINE BARBITURATES < 200 (200ng/ml); URINE BENZODIAZEPINES < 200 (200ng/ml); URINE CANNABINOIDS (THC) < 50 (50ng/ml); URINE COCAINE < 300 (300ng/ml); URINE METHADONE < 300 (300ng/ml); URINE OPIATES < 300 (300ng/ml)
[2019-06-11 11:09] LABS: URINE PHENCYCLIDINE < 25 (25ng/ml)
[2019-06-11 11:15] LABS: BACTERIA 2+; RBC 0-2 rbc/hpf (0-2); WBC 0-2 wbc/hpf (0-5)
== END 2019-06-11 12:48 | disposition home or self-care (01) ==
LOC: ED 09:34
PROVIDERS: Physician Assistant
DX: G89.29 Other chronic pain (principal); R10.31 Right lower quadrant pain; I10 Essential (primary) hypertension; Z88.1 Allergy status to other antibiotic agents; Z88.6 Allergy status to analgesic agent; Z79.899 Other long term (current) drug therapy; Z87.891 Personal history of nicotine dependence

== ENCOUNTER 2019-06-15 21:26 | Emergency (ER) | payer OTHER ==
[~2019-06-15] VITALS: Ht 157.4 cm; Wt 140.2 kg
== END 2019-06-15 22:06 | disposition home or self-care (01) ==
LOC: ED 21:26
DX: G89.29 Other chronic pain (principal); R10.30 Lower abdominal pain, unspecified; R10.2 Pelvic and perineal pain; N94.89 Other specified conditions associated with female genital organs and menstrual cycle; I10 Essential (primary) hypertension; F17.200 Nicotine dependence, unspecified, uncomplicated; Z88.1 Allergy status to other antibiotic agents; Z88.8 Allergy status to other drugs, medicaments and biological substances; Z79.899 Other long term (current) drug therapy; Z87.442 Personal history of urinary calculi; Z87.42 Personal history of other diseases of the female genital tract

== ENCOUNTER → 2019-06-24 | Outpatient (CLI) | payer OTHER ==
[2019-06-24 13:14] LABS: BASO # 0.1 10*3/uL (0.0-0.1); BASO % 0.5 % (0.0-1.0); EOS # 0.1 10*3/uL (0.0-0.4); EOS % 1.1 % (1.0-4.0); HEMATOCRIT 41.9 % (37.0-47.0); LYMPH # 2.8 10*3/uL (1.3-4.4); LYMPH % 30.1 % (27.0-41.0); MEAN CELL VOLUME 95.2 fl (81.0-99.0); MEAN CORPUSCULAR HGB 29.5 pg (27.0-31.0); MEAN PLATELET VOLUME 9.9 fl (9.6-12.3); MONO # 0.4 10*3/uL (0.1-1.0); MONO % 4.7 % (3.0-9.0); NEUT # 5.9 10*3/uL (2.3-7.9); NEUT % 63.3 % (47.0-73.0); PLATELET COUNT AUTOMATED 265 10*3/uL (130-400); RED CELL DISTRI WIDTH 15.2 % (0-14.5); WHITE BLOOD COUNT 9.3 10*3/uL (4.8-10.8)
[2019-06-24 13:41] LABS: ALBUMIN 3.7 gm/dl (3.1-4.5); ALKALINE PHOSPHATASE 86 U/L (45-117); BUN 14 mg/dl (7-24); CHLORIDE 110 mmol/L (98-107); CREATININE 0.74 mg/dL (0.55-1.02); POTASSIUM 3.7 mmol/L (3.5-5.1); SGOT/AST 7 IU/L (3-35); SGPT/ALT 21 U/L (12-78); SODIUM 141 mmol/L (136-145); TOTAL PROTEIN 7.5 gm/dL (6.4-8.2)
[2019-06-24 14:08] LABS: FERRITIN 14.6 ng/mL (10.0-291.0)
[2019-06-25 16:08] LABS: ANTICARDIOLIPIN AB, IGG, QN <9 GPL U/mL (0-14); ANTICARDIOLIPIN AB, IGM, QN <9 MPL U/mL (0-12); CARDIOLIPIN AB IGA 161836 <9 APL U/mL (0-11)
[2019-06-26 00:08] LABS: PTT-LA 30.8 sec (0.0-51.9)
[2019-06-26 04:07] LABS: BETA-2 GLYCOPROTEIN I AB,IGA <9 (0-25); BETA-2 GLYCOPROTEIN I AB,IGG <9 (0-20); BETA-2 GLYCOPROTEIN I AB,IGM <9 (0-32)
[2019-06-26 05:09] LABS: DVVTMIXRFX CHG; LUPUS DRVVT 55.3 sec (0.0-47.0)
[2019-06-26 06:06] LABS: LUPUS REFLEX INTERPRETATION Comment: (.)
== END | disposition home or self-care (01) ==
LOC: LAB 12:37
PROVIDERS: Internal Medicine Hematology & Oncology
DX: E55.9 Vitamin D deficiency, unspecified (principal); R53.83 Other fatigue; R79.89 Other specified abnormal findings of blood chemistry

== ENCOUNTER 2019-07-07 16:44 | Emergency (ER) | payer OTHER ==
[~2019-07-07] VITALS: Ht 157.4 cm; Wt 139.7 kg
[2019-07-07 18:33] LABS: BASO % 0.4 % (0.0-1.0); EOS % 0.5 % (1.0-4.0); HEMATOCRIT 42.7 % (37.0-47.0); HEMOGLOBIN 13.1 g/dl (12.0-16.0); LYMPH # 2.2 10*3/uL (1.3-4.4); LYMPH % 25.6 % (27.0-41.0); MEAN CELL VOLUME 93.6 fl (81.0-99.0); MEAN CORPUSCULAR HGB 28.7 pg (27.0-31.0); MEAN CORPUSCULAR HGB CONC 30.7 g/dl (33.0-37.0); MEAN PLATELET VOLUME 9.2 fl (9.6-12.3); MONO # 0.4 10*3/uL (0.1-1.0); MONO % 4.6 % (3.0-9.0); NEUT # 5.8 10*3/uL (2.3-7.9); NEUT % 68.7 % (47.0-73.0); PLATELET COUNT AUTOMATED 258 10*3/uL (130-400); RED BLOOD COUNT 4.56 10*6/uL (4.10-5.10); RED CELL DISTRI WIDTH 14.6 % (0-14.5); WHITE BLOOD COUNT 8.5 10*3/uL (4.8-10.8)
[2019-07-07 19:02] LABS: ALBUMIN 3.5 gm/dl (3.1-4.5); ALKALINE PHOSPHATASE 85 U/L (45-117); BUN 7 mg/dl (7-24); CHLORIDE 107 mmol/L (98-107); CREATININE 0.68 mg/dL (0.55-1.02); LIPASE 109 U/L (73-393); POTASSIUM 4.2 mmol/L (3.5-5.1); SGOT/AST 9 IU/L (3-35); SGPT/ALT 21 U/L (12-78); SODIUM 139 mmol/L (136-145); TOTAL PROTEIN 7.4 gm/dL (6.4-8.2)
[2019-07-07 19:03] LABS: BETA-HCG, QUANT < 1.0 mIU/mL (1-3)
[2019-07-07 19:21] LABS: CLARITY CLEAR (CLEAR); COLOR STRAW (YELLOW)
[2019-07-07 19:25] LABS: BILIRUBIN NEGATIVE (NEGATIVE); BLOOD TRACE-INTACT (NEGATIVE); GLUCOSE NEGATIVE (NEGATIVE); KETONE NEGATIVE (NEGATIVE); LEUKO ESTERASE NEGATIVE (NEGATIVE); NITRITE NEGATIVE (NEGATIVE); SPECIFIC GRAVITY 1.005 (1.005-1.030); UROBILINOGEN 0.2 E.U./dl (0.2-1.0)
[2019-07-07 19:28] LABS: BACTERIA 2+; EPITHELIAL CELLS 15-20; RBC 0-2 rbc/hpf (0-2); WBC 0-2 wbc/hpf (0-5)
== END 2019-07-07 20:07 | disposition home or self-care (01) ==
LOC: ED 16:44
PROVIDERS: Emergency Medicine
DX: R10.11 Right upper quadrant pain (principal); I10 Essential (primary) hypertension; G89.29 Other chronic pain; E66.01 Morbid (severe) obesity due to excess calories; Z88.1 Allergy status to other antibiotic agents; Z88.8 Allergy status to other drugs, medicaments and biological substances; Z79.899 Other long term (current) drug therapy; Z87.442 Personal history of urinary calculi; Z87.891 Personal history of nicotine dependence

== ENCOUNTER 2019-12-07 21:31 | Emergency (ER) | payer OTHER ==
[~2019-12-07] VITALS: Ht 160 cm; Wt 136.1 kg
[2019-12-07 22:35] LABS: BILIRUBIN NEGATIVE (NEGATIVE); BLOOD NEGATIVE (NEGATIVE); CLARITY CLEAR (CLEAR); COLOR YELLOW (YELLOW); GLUCOSE NEGATIVE (NEGATIVE); KETONE NEGATIVE (NEGATIVE); LEUKO ESTERASE NEGATIVE (NEGATIVE); NITRITE NEGATIVE (NEGATIVE); UROBILINOGEN 0.2 E.U./dl (0.2-1.0)
[2019-12-07 22:36] LABS: EPITHELIAL CELLS 31-40; RBC 0-2 rbc/hpf (0-2)
[2019-12-07 23:24] LABS: BASO # 0.1 10*3/uL (0.0-0.1); BASO % 0.5 % (0.0-1.0); EOS % 0.3 % (1.0-4.0); LYMPH # 2.5 10*3/uL (1.3-4.4); LYMPH % 24.4 % (27.0-41.0); MEAN CELL VOLUME 98.4 fl (81.0-99.0); MEAN CORPUSCULAR HGB 31.1 pg (27.0-31.0); MEAN CORPUSCULAR HGB CONC 31.6 g/dl (33.0-37.0); MEAN PLATELET VOLUME 9.5 fl (9.6-12.3); MONO # 0.5 10*3/uL (0.1-1.0); MONO % 4.9 % (3.0-9.0); NEUT % 69.6 % (47.0-73.0); PLATELET COUNT AUTOMATED 218 10*3/uL (130-400); RED BLOOD COUNT 4.47 10*6/uL (4.10-5.10); RED CELL DISTRI WIDTH 12.8 % (0-14.5)
[2019-12-07 23:38] LABS: ALBUMIN 3.3 gm/dl (3.1-4.5); ALKALINE PHOSPHATASE 62 U/L (45-117); BUN 8 mg/dl (7-24); CHLORIDE 108 mmol/L (98-107); CREATININE 0.56 mg/dL (0.55-1.02); POTASSIUM 4.1 mmol/L (3.5-5.1); SGOT/AST 8 IU/L (3-35); SGPT/ALT 20 U/L (12-78); SODIUM 137 mmol/L (136-145); TOTAL PROTEIN 6.7 gm/dL (6.4-8.2)
== END 2019-12-08 03:59 | disposition home or self-care (01) ==
LOC: ED 21:31
PROVIDERS: Emergency Medicine
DX: N20.0 Calculus of kidney (principal); F41.9 Anxiety disorder, unspecified; F32.9 Major depressive disorder, single episode, unspecified; I10 Essential (primary) hypertension; G43.909 Migraine, unspecified, not intractable, without status migrainosus; Z88.8 Allergy status to other drugs, medicaments and biological substances; Z79.899 Other long term (current) drug therapy

== ENCOUNTER 2019-12-10 12:15 | Emergency (ER) | payer OTHER ==
[~2019-12-10] VITALS: Ht 157.4 cm; Wt 136.1 kg
== END 2019-12-10 14:20 | disposition left against medical advice (07) ==
LOC: ED 12:15
DX: S69.92XA Unspecified injury of left wrist, hand and finger(s), initial encounter (principal); N20.0 Calculus of kidney; Z87.442 Personal history of urinary calculi; Z88.1 Allergy status to other antibiotic agents; Z88.8 Allergy status to other drugs, medicaments and biological substances; Z79.899 Other long term (current) drug therapy; Z98.890 Other specified postprocedural states; Z87.891 Personal history of nicotine dependence; W06.XXXA Fall from bed, initial encounter; Y93.89 Activity, other specified; Y92.89 Other specified places as the place of occurrence of the external cause; Y99.8 Other external cause status

== ENCOUNTER → 2019-12-26 | Emergency (ER) | payer OTHER ==
[~2019-12-26] VITALS: Wt 145.1 kg
== END ==
LOC: ED 18:49
DX: S86.011A Strain of right Achilles tendon, initial encounter (principal); G43.909 Migraine, unspecified, not intractable, without status migrainosus; F17.200 Nicotine dependence, unspecified, uncomplicated; Z88.1 Allergy status to other antibiotic agents; Z88.6 Allergy status to analgesic agent; Z79.899 Other long term (current) drug therapy; X58.XXXA Exposure to other specified factors, initial encounter; Y93.89 Activity, other specified; Y92.89 Other specified places as the place of occurrence of the external cause; Y99.8 Other external cause status

== ENCOUNTER 2020-04-24 14:22 | Emergency (ER) | payer OTHER ==
[~2020-04-24] VITALS: Ht 157.4 cm; Wt 145.1 kg
== END 2020-04-24 16:42 | disposition home or self-care (01) ==
LOC: ED 14:22
DX: S83.92XA Sprain of unspecified site of left knee, initial encounter (principal); Z88.1 Allergy status to other antibiotic agents; Z88.6 Allergy status to analgesic agent; Z79.899 Other long term (current) drug therapy; X58.XXXA Exposure to other specified factors, initial encounter; Y93.89 Activity, other specified; Y92.89 Other specified places as the place of occurrence of the external cause; Y99.8 Other external cause status

== ENCOUNTER → 2020-05-25 | Outpatient (CLI) | payer OTHER | END | disposition home or self-care (01) | LOC: COVID19 16:09 | PROVIDERS: ATTEND Internal Medicine | DX: Z20.822 Contact with and (suspected) exposure to COVID-19 (principal) ==

== ENCOUNTER → 2020-08-23 | Outpatient (CLI) | payer OTHER ==
[~2020-08-23] MED LIST changes: +SEPTDS PO
[2020-08-23 13:20] LABS: BASO # 0.1 10*3/uL (0.0-0.1); BASO % 0.4 % (0.0-1.0); EOS # 0.1 10*3/uL (0.0-0.4); EOS % 0.8 % (1.0-4.0); LYMPH # 3.1 10*3/uL (1.3-4.4); MEAN CELL VOLUME 92.9 fl (81.0-99.0); MEAN CORPUSCULAR HGB 28.5 pg (27.0-31.0); MEAN CORPUSCULAR HGB CONC 30.7 g/dl (33.0-37.0); MEAN PLATELET VOLUME 9.7 fl (9.6-12.3); MONO # 0.6 10*3/uL (0.1-1.0); MONO % 5.1 % (3.0-9.0); NEUT % 67.2 % (47.0-73.0); PLATELET COUNT AUTOMATED 292 10*3/uL (130-400); RED BLOOD COUNT 4.52 10*6/uL (4.10-5.10); RED CELL DISTRI WIDTH 14.2 % (0-14.5)
[2020-08-23 14:02] LABS: ALBUMIN 3.6 gm/dl (3.1-4.5); ALKALINE PHOSPHATASE 93 U/L (45-117); BUN 10 mg/dl (7-24); CHLORIDE 105 mmol/L (98-107); CHOLESTEROL 154 mg/dL (<200); CREATININE 0.64 mg/dL (0.55-1.02); HDL CHOLESTEROL 30 mg/dl (40-60); LDL CHOLESTEROL 66 mg/dL (9-159); POTASSIUM 3.9 mmol/L (3.5-5.1); SGOT/AST 9 IU/L (3-35); SGPT/ALT 26 U/L (12-78); SODIUM 136 mmol/L (136-145); TOTAL PROTEIN 7.6 gm/dL (6.4-8.2); TRIGLYCERIDES 292 mg/dl (<150); VLDL CHOLESTEROL 58 mg/dL (6-40)
[2020-08-24 17:06] LABS: BARBITURATE, URINE Negative ng/mL (Cutoff=200); CANNABINOID, URINE Negative ng/mL (Cutoff=20); CREATININE, UR 89.4 mg/dL (20.0-300.0); PH URINE 5.7 (4.5-8.9)
[2020-08-27 19:06] LABS: CODEINE, URINE Negative (Cutoff=100)
== END | disposition home or self-care (01) ==
LOC: LAB 12:33
PROVIDERS: ATTEND Internal Medicine
DX: G89.4 Chronic pain syndrome (principal); E66.01 Morbid (severe) obesity due to excess calories; F19.20 Other psychoactive substance dependence, uncomplicated

== ENCOUNTER 2020-08-25 18:32 | Emergency (ER) | payer OTHER ==
[~2020-08-25] VITALS: Wt 145.1 kg
[~2020-08-25 18:32] MED LIST changes: -SEPTDS PO
[2020-08-25 19:25] LABS: BILIRUBIN Negative (Negative); BLOOD Negative (Negative); CLARITY Clear (Clear); COLOR Yellow (Yellow); GLUCOSE Trace (Negative); KETONE Negative (Negative); LEUKO ESTERASE Negative (Negative); NITRITE Negative (Negative); PH 5.5 (4.5-8.0); SPECIFIC GRAVITY >= 1.030 (1.001-1.030)
[2020-08-25 19:39] LABS: BACTERIA 1+
[2020-08-25] MEDS ORDERED: SEPTDS PO (22:19)
[2020-08-25] MEDS ORDERED: FLAGYL500 MG PO (22:19)
== END 2020-08-25 22:35 | disposition home or self-care (01) ==
LOC: ED 18:32
PROVIDERS: Family Medicine
DX: K52.9 Noninfective gastroenteritis and colitis, unspecified (principal); F41.9 Anxiety disorder, unspecified; F32.9 Major depressive disorder, single episode, unspecified; I10 Essential (primary) hypertension; F17.200 Nicotine dependence, unspecified, uncomplicated; Z88.8 Allergy status to other drugs, medicaments and biological substances; Z79.899 Other long term (current) drug therapy; Z98.890 Other specified postprocedural states

== ENCOUNTER 2020-09-14 21:18 | Emergency (ER) | payer OTHER ==
[~2020-09-14] VITALS: Ht 157.4 cm; Wt 148.3 kg
[~2020-09-14 21:18] MED LIST changes: +SEPTDS PO
[2020-09-14 22:35] LABS: BASO % 0.4 % (0.0-1.0); EOS # 0.1 10*3/uL (0.0-0.4); EOS % 1.1 % (1.0-4.0); HEMATOCRIT 39.7 % (37.0-47.0); LYMPH # 2.9 10*3/uL (1.3-4.4); LYMPH % 30.7 % (27.0-41.0); MEAN CELL VOLUME 94.5 fl (81.0-99.0); MEAN CORPUSCULAR HGB 28.8 pg (27.0-31.0); MEAN CORPUSCULAR HGB CONC 30.5 g/dl (33.0-37.0); MEAN PLATELET VOLUME 9.4 fl (9.6-12.3); MONO # 0.5 10*3/uL (0.1-1.0); MONO % 4.9 % (3.0-9.0); NEUT # 5.9 10*3/uL (2.3-7.9); NEUT % 62.7 % (47.0-73.0); PLATELET COUNT AUTOMATED 260 10*3/uL (130-400); RED CELL DISTRI WIDTH 14.9 % (0-14.5); WHITE BLOOD COUNT 9.4 10*3/uL (4.8-10.8)
[2020-09-14 22:50] LABS: ALBUMIN 3.3 gm/dl (3.1-4.5); ALKALINE PHOSPHATASE 78 U/L (45-117); BUN 11 mg/dl (7-24); CHLORIDE 109 mmol/L (98-107); CREATININE 0.66 mg/dL (0.55-1.02); LIPASE 120 U/L (73-393); POTASSIUM 3.8 mmol/L (3.5-5.1); SGOT/AST 11 IU/L (3-35); SGPT/ALT 26 U/L (12-78); SODIUM 139 mmol/L (136-145); TOTAL PROTEIN 6.8 gm/dL (6.4-8.2)
[2020-09-14 23:16] LABS: BILIRUBIN Negative (Negative); BLOOD Negative (Negative); CLARITY Clear (Clear); COLOR Yellow (Yellow); GLUCOSE Negative (Negative); KETONE Trace (Negative); LEUKO ESTERASE Negative (Negative); NITRITE Negative (Negative); PH 5.5 (4.5-8.0); SPECIFIC GRAVITY >= 1.030 (1.001-1.030)
[2020-09-14 23:27] LABS: BACTERIA 1+; EPITHELIAL CELLS 21-30; WBC 0-2 wbc/hpf (0-5)
== END 2020-09-14 23:45 | disposition home or self-care (01) ==
LOC: ED 21:18
PROVIDERS: Physician Assistant
DX: R10.11 Right upper quadrant pain (principal); Z88.8 Allergy status to other drugs, medicaments and biological substances; Z79.899 Other long term (current) drug therapy; Z98.890 Other specified postprocedural states

== ENCOUNTER 2021-01-08 16:58 | Emergency (ER) | payer OTHER ==
[~2021-01-08] VITALS: Wt 140.6 kg
[2021-01-08 18:23] LABS: BILIRUBIN Negative (Negative); BLOOD 3+ (Negative); CLARITY Turbid (Clear); COLOR Orange (Yellow); GLUCOSE Negative (Negative); KETONE Negative (Negative); LEUKO ESTERASE 1+ (Negative); NITRITE Negative (Negative)
[2021-01-08 18:31] LABS: BACTERIA 3+; EPITHELIAL CELLS TNTC; RBC TNTC rbc/hpf (0-2)
[2021-01-08 18:38] LABS: BASO % 0.4 % (0.0-1.0); EOS # 0.1 10*3/uL (0.0-0.4); EOS % 0.8 % (1.0-4.0); HEMATOCRIT 41.1 % (37.0-47.0); LYMPH # 2.6 10*3/uL (1.3-4.4); LYMPH % 23.7 % (27.0-41.0); MEAN CELL VOLUME 93.6 fl (81.0-99.0); MEAN CORPUSCULAR HGB 29.4 pg (27.0-31.0); MEAN CORPUSCULAR HGB CONC 31.4 g/dl (33.0-37.0); MONO # 0.5 10*3/uL (0.1-1.0); MONO % 4.5 % (3.0-9.0); NEUT # 7.6 10*3/uL (2.3-7.9); NEUT % 70.3 % (47.0-73.0); PLATELET COUNT AUTOMATED 240 10*3/uL (130-400); RED BLOOD COUNT 4.39 10*6/uL (4.10-5.10); RED CELL DISTRI WIDTH 14.1 % (0-14.5); WHITE BLOOD COUNT 10.9 10*3/uL (4.8-10.8)
[2021-01-08 18:53] LABS: ALBUMIN 3.4 gm/dl (3.1-4.5); ALKALINE PHOSPHATASE 95 U/L (45-117); BUN 8 mg/dl (7-24); CHLORIDE 105 mmol/L (98-107); CREATININE 0.65 mg/dL (0.55-1.02); LIPASE 77 U/L (73-393); SGOT/AST 16 IU/L (3-35); SGPT/ALT 34 U/L (12-78); SODIUM 137 mmol/L (136-145); TOTAL PROTEIN 7.4 gm/dL (6.4-8.2)
[2021-01-08] MEDS ORDERED: CEFUROXIME AXE500 MG PO (23:15)
== END 2021-01-08 23:28 | disposition home or self-care (01) ==
LOC: ED 16:58
PROVIDERS: Emergency Medicine; Nurse Practitioner
DX: N20.0 Calculus of kidney (principal); Z88.1 Allergy status to other antibiotic agents; Z88.8 Allergy status to other drugs, medicaments and biological substances; Z79.899 Other long term (current) drug therapy; Z87.891 Personal history of nicotine dependence

== ENCOUNTER 2021-01-09 02:12 | Emergency (ER) | payer OTHER ==
[~2021-01-09] VITALS: Ht 177.8 cm; Wt 142.9 kg
[~2021-01-09 02:12] MED LIST changes: +CEFUROXIME AXE500 MG PO
== END 2021-01-09 04:20 | disposition home or self-care (01) ==
LOC: ED 02:12
DX: N20.0 Calculus of kidney (principal); G43.909 Migraine, unspecified, not intractable, without status migrainosus; E66.01 Morbid (severe) obesity due to excess calories; F17.200 Nicotine dependence, unspecified, uncomplicated; Z87.442 Personal history of urinary calculi; Z88.1 Allergy status to other antibiotic agents; Z88.8 Allergy status to other drugs, medicaments and biological substances; Z79.2 Long term (current) use of antibiotics; Z79.899 Other long term (current) drug therapy; Z87.42 Personal history of other diseases of the female genital tract; Z98.890 Other specified postprocedural states

== ENCOUNTER 2021-02-13 02:49 | Emergency (ER) | payer OTHER ==
[~2021-02-13] VITALS: Ht 160 cm; Wt 140.6 kg
[2021-02-13 03:13] LABS: BASO % 0.4 % (0.0-1.0); EOS % 0.5 % (1.0-4.0); HEMATOCRIT 38.3 % (37.0-47.0); LYMPH # 2.3 10*3/uL (1.3-4.4); LYMPH % 29.3 % (27.0-41.0); MEAN CELL VOLUME 93.4 fl (81.0-99.0); MEAN CORPUSCULAR HGB 28.8 pg (27.0-31.0); MEAN CORPUSCULAR HGB CONC 30.8 g/dl (33.0-37.0); MEAN PLATELET VOLUME 9.4 fl (9.6-12.3); MONO # 0.4 10*3/uL (0.1-1.0); MONO % 4.5 % (3.0-9.0); NEUT # 5.2 10*3/uL (2.3-7.9); PLATELET COUNT AUTOMATED 248 10*3/uL (130-400); RED CELL DISTRI WIDTH 13.8 % (0-14.5)
[2021-02-13 03:28] LABS: ALBUMIN 3.1 gm/dl (3.1-4.5); ALKALINE PHOSPHATASE 75 U/L (45-117); BUN 15 mg/dl (7-24); CHLORIDE 107 mmol/L (98-107); CREATININE 0.83 mg/dL (0.55-1.02); POTASSIUM 4.5 mmol/L (3.5-5.1); SGOT/AST 11 IU/L (3-35); SGPT/ALT 24 U/L (12-78); SODIUM 138 mmol/L (136-145); TOTAL PROTEIN 6.6 gm/dL (6.4-8.2)
[2021-02-13 04:48] LABS: BILIRUBIN Negative (Negative); BLOOD 3+ (Negative); CLARITY Clear (Clear); COLOR Yellow (Yellow); GLUCOSE Trace (Negative); KETONE Trace (Negative); LEUKO ESTERASE Negative (Negative); NITRITE Negative (Negative); PH 5.5 (4.5-8.0); SPECIFIC GRAVITY >= 1.030 (1.001-1.030)
[2021-02-13 04:55] LABS: BACTERIA 1+; RBC 16-20 rbc/hpf (0-2); WBC 0-2 wbc/hpf (0-5)
== END 2021-02-13 06:04 | disposition home or self-care (01) ==
LOC: ED 02:49
PROVIDERS: Emergency Medicine
DX: N20.0 Calculus of kidney (principal); E66.01 Morbid (severe) obesity due to excess calories; G43.909 Migraine, unspecified, not intractable, without status migrainosus; F17.200 Nicotine dependence, unspecified, uncomplicated; Z87.442 Personal history of urinary calculi; Z79.2 Long term (current) use of antibiotics; Z79.899 Other long term (current) drug therapy; Z88.1 Allergy status to other antibiotic agents; Z88.8 Allergy status to other drugs, medicaments and biological substances; Z87.42 Personal history of other diseases of the female genital tract; Z98.890 Other specified postprocedural states

== ENCOUNTER 2021-03-12 23:43 | Emergency (ER) | payer OTHER ==
[~2021-03-12] VITALS: Ht 160 cm; Wt 140.6 kg
[2021-03-13 00:30] LABS: BASO % 0.3 % (0.0-1.0); EOS # 0.1 10*3/uL (0.0-0.4); EOS % 1.1 % (1.0-4.0); HEMATOCRIT 34.7 % (37.0-47.0); LYMPH # 2.2 10*3/uL (1.3-4.4); LYMPH % 27.6 % (27.0-41.0); MEAN CELL VOLUME 92.5 fl (81.0-99.0); MEAN CORPUSCULAR HGB 28.5 pg (27.0-31.0); MEAN CORPUSCULAR HGB CONC 30.8 g/dl (33.0-37.0); MEAN PLATELET VOLUME 9.4 fl (9.6-12.3); MONO # 0.4 10*3/uL (0.1-1.0); MONO % 5.6 % (3.0-9.0); NEUT # 5.1 10*3/uL (2.3-7.9); PLATELET COUNT AUTOMATED 224 10*3/uL (130-400); RED BLOOD COUNT 3.75 10*6/uL (4.10-5.10); RED CELL DISTRI WIDTH 14.2 % (0-14.5); WHITE BLOOD COUNT 7.9 10*3/uL (4.8-10.8)
[2021-03-13 00:46] LABS: ALBUMIN 2.8 gm/dl (3.1-4.5); ALKALINE PHOSPHATASE 76 U/L (45-117); BUN 9 mg/dl (7-24); CHLORIDE 110 mmol/L (98-107); CREATININE 0.59 mg/dL (0.55-1.02); LIPASE 72 U/L (73-393); POTASSIUM 3.8 mmol/L (3.5-5.1); SGOT/AST 13 IU/L (3-35); SGPT/ALT 28 U/L (12-78); SODIUM 142 mmol/L (136-145); TOTAL PROTEIN 6.1 gm/dL (6.4-8.2)
[2021-03-13 02:26] LABS: BILIRUBIN Negative (Negative); BLOOD 3+ (Negative); CLARITY Cloudy (Clear); COLOR Yellow (Yellow); GLUCOSE Negative (Negative); KETONE Negative (Negative); LEUKO ESTERASE Negative (Negative); NITRITE Negative (Negative); PH 5.5 (4.5-8.0); SPECIFIC GRAVITY 1.025 (1.001-1.030)
[2021-03-13 02:41] LABS: RBC 31-40 rbc/hpf (0-2); WBC 0-2 wbc/hpf (0-5)
[2021-03-13] MEDS ORDERED: Percocet 325 MG1 TAB PO (02:57)
[2021-03-13] MEDS ORDERED: ZOFRAN4 MG PO (02:57)
== END 2021-03-13 04:00 | disposition home or self-care (01) ==
LOC: ED 23:43
PROVIDERS: Emergency Medicine
DX: N20.0 Calculus of kidney (principal); F17.200 Nicotine dependence, unspecified, uncomplicated; Z87.442 Personal history of urinary calculi; Z88.1 Allergy status to other antibiotic agents; Z88.8 Allergy status to other drugs, medicaments and biological substances; Z88.2 Allergy status to sulfonamides; Z98.890 Other specified postprocedural states

== ENCOUNTER → 2021-03-17 | Outpatient (CLI) | payer OTHER ==
[~2021-03-17] MED LIST changes: +Percocet 325 MG1 TAB PO
== END | disposition home or self-care (01) ==
LOC: COVID19 16:50
PROVIDERS: ATTEND Podiatrist Foot & Ankle Surgery
DX: Z11.52 Encounter for screening for COVID-19 (principal)

== ENCOUNTER → 2021-05-09 | Outpatient (CLI) | payer OTHER | END | disposition home or self-care (01) | LOC: COVID19 18:00 | PROVIDERS: ATTEND Internal Medicine | DX: Z20.822 Contact with and (suspected) exposure to COVID-19 (principal) ==

== ENCOUNTER → 2022-08-19 | Outpatient (CLI) | payer OTHER ==
[2022-08-19 07:48] LABS: URINE AMPHETAMINES Negative (1000ng/ml); URINE BARBITURATES Negative (200ng/ml); URINE BENZODIAZEPINES Negative (200ng/ml); URINE CANNABINOIDS (THC) Positive (50ng/ml); URINE COCAINE Negative (300ng/ml); URINE METHADONE Negative (300ng/ml); URINE OPIATES Positive (300ng/ml); URINE PHENCYCLIDINE Negative (25ng/ml)
== END | disposition home or self-care (01) ==
LOC: LAB 07:21
PROVIDERS: ATTEND Internal Medicine
DX: F19.20 Other psychoactive substance dependence, uncomplicated (principal)